=== PATIENT | male | born 1960 | race Caucasian/White ===

== ENCOUNTER 2024-06-29 06:49 | Emergency (ER) | payer MEDICARE, MEDICAID, SELFPAY ==
[2024-06-29] VITALS (8 sets, daily range): BP systolic 84–183; BP diastolic 61–155; PULSE 66–169; RESP 16–22; TEMP 36.4–36.8; O2SAT 97–100; BMI 22.3
--- NOTE | 2024-06-29 06:52 | EKG_ITS ---
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1960 Requested By: ED Temporary Provider Order Number: [id number] Reading MD: ED Temporary Provider Measurements Intervals [place] Rate: 76 P: 46 [place]: 152 QRS: -17 QRSD: 185 T: 52 QT: 385 QTc: 433 Interpretive Statements SINUS RHYTHM WITH FREQUENT SUPRAVENTRICULAR PREMATURE COMPLEXES INDETERMINATE AXIS RIGHT BUNDLE BRANCH BLOCK [120+ ms QRS DURATION, UPRIGHT V1, 40+ ms S IN I/aVL/V4/V5/V6] SEPTAL MYOCARDIAL INFARCTION , OF INDETERMINATE AGE [40+ ms Q WAVE IN V1/V2] Compared to ECG 05/25/2023 09:42:04 Right bundle-branch block now present Myocardial infarct finding now present Incomplete right bundle-branch block no longer present /store/S0/[id number].pdf
--- NOTE | 2024-06-29 07:24 | PC.NURSE ---
Pt. here from home to room 5, pt. states his chest pain woke him up this morning. Pt. states he took 1 of his Nitro this morning, pt. states after the Nitro he vomited X 4. Pt. states he is supposed to be taking a heart medication and sometimes he takes it once a week, pt. states he takes it when he gets a bad headache.
--- NOTE | 2024-06-29 07:27 | PD.EDCHEST ---
ED Chest Pain RME/HPI General Chief Complaint: Chest Pain Stated Complaint: CHEST PAIN RADIATES TO LEFT ARM Time Seen by Provider: 06/29/24 06:55 Arrival date/time: 06/29/24 06:49 RME / HPI RME / HPI narrative: Patient is a 64-year-old male with past medical history of CAD, SVT, paroxysmal afib, and methamphetamine/marijuana abuse who presents to the ED on 06/29/2024 due to chest discomfort and palpitations starting around 5 am. Patient states that chest discomfort feels like aching, central substernal, and with radiation to the left arm. Patient endorses smoking meth last 3 days ago. Patient does not take any regular medications other than lisinopril which he takes intermittently. Patient otherwise denies fevers, chills, abdominal pain, dysuria, or changes in bowel habits. Related Data Home Medications ?Medication ?Instructions ?Recorded ?Confirmed lisinopril 20 1 tab PO DAILY 05/25/23 05/25/23 mg-hydrochlorothiazide 12.5 mg tablet Previous Rx's ?Medication ?Instructions ?Recorded docusate sodium 100 mg capsule 100 mg PO BID #40 caps 05/26/23 (Colace) hydrocodone 7.5 mg-acetaminophen 1 tab PO Q6H PRN pain (scale score 05/26/23 325 mg tablet 7-10) #20 tabs ibuprofen 600 mg tablet 600 mg PO Q8H PRN pain (scale 05/26/23 score 4-6) #15 tabs Allergies Allergy/AdvReac Type Severity Reaction Status Date / Time No Known Allergies Allergy Verified 05/26/23 10:10 Review of Systems Review of Systems Systems Reviewed: All systems reviewed, normal except as documented Past Medical History Past Medical History CARDIAC: Positive Cardiac Disorders (SVT), Myocardial Infarction (x2) and Hypertension RESPIRATORY: Positive Pneumonia GENITOURINARY: Negative Renal Disease ENDOCRINE: Negative Diabetes Mellitus Type 1 or Diabetes Mellitus Type 2 Family History FAMILY HISTORY: Positive Family Cardiac Disorders (sister had heart attack, father of heart attack.), Family Gastrointestinal Problems (sister from CROHN'S DISEASE.) and Family Cancer (brother and sister) Social History SMOKING STATUS: Current every day smoker SECOND HAND EXPOSURE: Yes Travel History EBOLA RISK: No ED Exam Narrative Physical exam: Physical Exam General: Well-built male, awake, and in no acute distress. Conversational, disheveled appearing. HEENT: Normocephalic, atraumatic, mucous membranes moist. Heart: Tachycardic rate and regular rhythm, no murmurs. Lungs: Clear to auscultation with no wheezing or crackles. Abdomen: Soft, nondistended, nontender, positive bowel sounds. ?No guarding or rebound tenderness. Neurologic: Alert and oriented x3, no gross neurological deficit, and patient able to move all 4 extremities. Extremities: No edema. Skin: No rash or ecchymoses. Course Quality Measures none Orders Category Date Time Status Supervisor Assembling NOW Care 06/29/24 07:12 Completed EKG (ED ONLY) *Do not use* NOW Care 06/29/24 06:52 Completed EKG (ED ONLY) *Do not use* NOW Care 06/29/24 07:44 Completed CXR [XR chest 1V] Stat Exams 06/29/24 07:28 Completed EKG (ED Only) Stat Exams 06/29/24 06:52 Draft EKG (ED Only) Stat Exams 06/29/24 07:44 Ordered CBC Stat Lab 06/29/24 08:25 Completed CMP [Comprehensive Metabolic Panel] Stat Lab 06/29/24 08:15 Completed Mag [Magnesium] Stat Lab 06/29/24 08:15 Completed Troponin I Stat Lab 06/29/24 08:15 Completed Adenosine 6mg Inj [Adenocard Inj] Med 06/29/24 07:16 Discontinued 12 mg IVP X1 ONE Adenosine 6mg Inj [Adenocard Inj] Med 06/29/24 07:59 Discontinued 12 mg IVP X1 ONE Adenosine 6mg Inj [Adenocard Inj] Med 06/29/24 07:53 Discontinued 6 mg .ROUTE .STK-MED ONE Sodium Chloride 0.9% 1000 ml [Ns] 1,000 ml Med 06/29/24 07:49 Discontinued IV 999 mls/hr Vital Signs Vital signs: Vital Signs Temperature 98.2 F 06/29/24 07:04 Pulse Rate 169 H 06/29/24 07:04 Respiratory Rate 22 H 06/29/24 07:04 Blood Pressure 183/155 H 06/29/24 07:04 Pulse Oximetry (%) 100 06/29/24 07:04 Oxygen Delivery Method Room Air 06/29/24 07:04 Procedures -ED EKG Interpretation #1: Date of EK06/29/24 Time of EK:54 Rate: 173 Interpretation: Interpreted by me EKG Impression: Bundle branch block (right) and SVT Chest Pain MDM Narrative MDM Narrative:: EKG is less clear due to the right bundle branch block but patient's rate has been regular in the 170s. Patient data External records reviewed:: [facility] previous records Clinical information provided by:: patient Social determinants that could affect healthcare access:: substance use Patient has the following chronic illnesses:: As above How is presenting disease/condition affected by chronic disease/condition?: caused by Evaluation data The following diagnostics were reviewed and interpreted by me:: lab results, radiology exam(s) and EKG tracing(s) Lab and/or radiology exams considered but not ordered:: Ordered Interpretation Summary: CXR shows no pneumonia or pulmonary edema at this time. Troponin is normal. Medications / Prescriptions Medications or Prescriptions considered but not ordered:: Given Medication administrations:: Medication Administration History Discontinued Medications Adenosine (Adenosine Inj 3 Mg/Ml Vial) 12 mg IVP X1 ONE Stop: 06/29/24 07:17 Last Admin: 06/29/24 07:56 Dose: 6 mg Documented By: ED Adenosine (Adenosine Inj 3 Mg/Ml Vial) 12 mg IVP X1 ONE Stop: 06/29/24 08:00 Last Admin: 06/29/24 08:00 Dose: 12 mg Documented By: ED Adenosine (Adenosine Inj 3 Mg/Ml Vial) Confirm Administered Dose 6 mg .ROUTE .STK-MED ONE Stop: 06/29/24 07:54 Last Admin: 06/29/24 08:05 Dose: Not Given Documented By: ED Non-Admin Reason: Duplicate Medication on eMAR Sodium Chloride (Ns) 1,000 mls @ 999 mls/hr IV .Q1H1M ONE Stop: 06/29/24 08:49 Last Admin: 06/29/24 08:06 Dose: 999 mls/hr Documented By: ED Given Consultations Consultation(s) initiated? (list below): No Diagnosis Chest Pain Differential Diagnosis: stable angina, atypical chest pain, costochondritis and chest pain Most likely diagnosis given after review of the tests above:: SVT Admission Indicated Admission indicated?: not indicated Explain why admission is indicated or not indicated:: Patient's condition was stabilized while in ED and he is stable for discharge home. Admission Request Was there a request for admission?: No Disposition Plan Disposition Plan: Discharge Discharge Attestation Discharge Attestation: The patient and all family members were given an opportunity to ask questions and understood the discharge instructions. Discharge instructions specifically effects, indications for sooner follow up or return to the emergency department, and the expected course of current diagnosis. Patient condition: Stable Discharge Plan Plan Patient Disposition: HOME (Self Care) Disposition Comment: Stable for discharge Patient condition on transfer: Stable Prescriptions/Referrals Prescriptions/Med Rec: No Action lisinopril-hydrochlorothiazide 20-12.5 mg tablet 1 tab PO DAILY docusate sodium [Colace] 100 mg capsule 100 mg PO BID Qty: 40 0RF ibuprofen 600 mg tablet 600 mg PO Q8H PRN (Reason: pain (scale score 4-6)) Qty: 15 0RF hydrocodone-acetaminophen 7.5-325 mg tablet 1 tab PO Q6H MDD 4 PRN (Reason: pain (scale score 7-10)) Qty: 20 0RF Referrals: Temporary Provider,ED [Physician] - In 1 week Problem List Clinical Impression: Supraventricular tachycardia, Methamphetamine abuse Patient/Caregiver Discharge Instructions Education Materials: Understanding Methamphetamine ..., Understanding Supraventricular ..., ED About Arrhythmias, ED Drug Abuse Additional Instructions: Please make an appointment to follow up with your primary doctor. Please continue taking your home medications as prescribed and follow up with your primary doctor. Please refrain from taking any methamphetamines as they can cause abnormal heart rhythms. Please return to the ED if you experience recurrence of chest pain or have any shortness of breath. Print Language: Nigerian Stand Alone Forms: Lori Award Info., Patient Portal Info Letter
--- NOTE | 2024-06-29 07:28 | XR_ITS ---
Examination: AP chest single view Technique one AP portable upright chest single view Exam date and time: June 29, 2024 0805 hours Comparison August 28, 2017 INDICATIONS: Chest pain today. FINDINGS: Accentuation basilar bronchovascular markings No significant cardiac enlargement Prominent central pulmonary arteries Possible bullous change at the right apex Prominent osteopenia IMPRESSION: COPD Basilar bronchitis pattern
[2024-06-29] MEDS: ADENOSINE INJ 3 MG/ML VIAL 12 MG IVP ×2 (07:56→08:00)
[2024-06-29] MEDS: SODIUM CHLORIDE 0.9% 1000 ML 1,000 ML 999 ML IV (08:06)
--- NOTE | 2024-06-29 08:13 | PC.NURSE ---
Pt. states when the chest pain started this morning at 0530, he couldn't see. Pt. states that has resolved now.
--- NOTE | 2024-06-29 08:15 | PC.NURSE ---
2 warm blankets given. Pt. states thank you.
[2024-06-29 08:35] LABS: Basophils # (Auto) 0.1 Thou/mm3 (0.0-0.2); Basophils % (Auto) 1 % (0-2.5); Eosinophils # (Auto) 0.2 Thou/mm3 (0.0-0.5); Eosinophils % (Auto) 2 % (0-10); Hematocrit 38.9 % (41.0-53.0); Immature Granulocytes % (Auto) 0 % (0-0); Immature Granulocytes Auto 0.03 Thou/mm3 (0.00-0.00); Lymphocytes # (Auto) 1.2 Thou/mm3 (1.0-4.8); Lymphocytes % (Auto) 12 % (10-50); Mean Corpuscular HGB Conc 33.4 g/dl (31.0-37.0); Mean Corpuscular Hemoglobin 27.2 pg (25.0-35.0); Mean Corpuscular Volume 81 fL (80-100); Monocytes # (Auto) 0.7 Thou/mm3 (0.0-0.8); Monocytes % (Auto) 7 % (0-12); Neutrophils # (Auto) 7.6 Thou/mm3 (1.8-7.7); Neutrophils % (Auto) 78 % (37-80); Nucleated Red Blood Cell % 0 /100 WBC (0); Platelet Count 359 Thou/mm3 (140-440); RDW Standard Deviation 42.4 fL (35.1-43.9); Red Blood Count 4.78 Miln/mm3 (4.50-5.90); White Blood Count 9.7 Thou/mm3 (3.8-10.6)
[2024-06-29 09:18] LABS: Alanine Aminotransferase < 7 U/L (10-49); Albumin, Serum 3.5 gm/dL (3.4-4.8); Albumin/Globulin Ratio 1.5 (1.2-2.2); Alkaline Phosphatase 112 U/L (46-116); Anion Gap 7 (7-16); Aspartate Amino Transferase 11 U/L (0-34); BUN/Creatinine Ratio 23 Ratio (12-20); Bilirubin,Total 0.3 mg/dL (0.3-1.2); Blood Urea Nitrogen 25 mg/dL (9-23); Calcium 8.7 mg/dL (8.3-10.6); Calcium (Corrected) 9.1 mg/dL (8.5-10.1); Carbon Dioxide 25.6 mMol/L (20.0-31.0); Chloride 107 mMol/L (98-107); Creatinine (Component) 1.1 mg/dL (0.6-1.3); Estimated Creatinine Clearance 68.7 mL/min (>60); Globulin 2.4 gm/dL (2.3-3.5); Glucose 122 mg/dL (74-106); Magnesium 1.8 mg/dL (1.6-2.6); Osmolality,Calculated 284 (275-295); Potassium 3.5 mMol/L (3.4-5.1); Sodium 140 mMol/L (136-145); Total Protein 5.9 gm/dL (5.7-8.2); Troponin I 0.023 ng/mL (0.0-0.045); eGFR > 60 See Note
== END 2024-06-29 11:48 | disposition home or self-care (01) ==
PROVIDERS: Student in an Organized Health Care Education/Training Program; Emergency Provider Emergency Medicine
DX: I47.10 Supraventricular tachycardia, unspecified (principal); I45.10 Unspecified right bundle-branch block; F15.10 Other stimulant abuse, uncomplicated; I25.10 Atherosclerotic heart disease of native coronary artery without angina pectoris; I48.0 Paroxysmal atrial fibrillation; I10 Essential (primary) hypertension; I25.2 Old myocardial infarction; F17.200 Nicotine dependence, unspecified, uncomplicated
CPT/HCPCS: 36415; 71045; 80053; 83735; 84484; 85025; 93005; 96374; 99284; J0153; J7030

== ENCOUNTER 2024-07-28 17:40 | Emergency (ER) | payer MEDICARE, MEDICAID, SELFPAY ==
[2024-07-28 18:02] VITALS: BP 146/77; PULSE 75; RESP 18; TEMP 37.2; O2SAT 95; BMI 24.3
--- NOTE | 2024-07-28 19:22 | PD.EDSKIN ---
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 Patient was seen in clinic and given Bactrim w/o relief. Limitations: no limitations Related Data Home Medications ?Medication ?Instructions ?Recorded ?Confirmed lisinopril 20 1 tab PO DAILY 05/25/23 05/25/23 mg-hydrochlorothiazide 12.5 mg tablet Previous Rx's ?Medication ?Instructions ?Recorded docusate sodium 100 mg capsule 100 mg PO BID #40 caps 05/26/23 (Colace) hydrocodone 7.5 mg-acetaminophen 1 tab PO Q6H PRN pain (scale score 05/26/23 325 mg tablet 7-10) #20 tabs ibuprofen 600 mg tablet 600 mg PO Q8H PRN pain (scale 05/26/23 score 4-6) #15 tabs clobetasol 0.05 % topical cream 1 applic topical BID 2 weeks #15 07/28/24 grams ketoconazole 2 % shampoo 1 applic topical Q14D #120 mL 07/28/24 Allergies Allergy/AdvReac Type Severity Reaction Status Date / Time No Known Allergies Allergy Verified 07/28/24 17:41 Review of Systems Review of Systems Systems Reviewed: All systems reviewed, normal except as documented Constitutional Constitutional: Reports system reviewed and no additional complaints, except as documented, Denies fever(s) and Denies headache(s) ENT Ears, Nose, Mouth, and Throat: Denies disequilibrium and Denies headache(s) Cardiovascular Cardiovascular: Reports system reviewed and no additional complaints, except as documented, Denies chest pain and Denies dyspnea Respiratory Respiratory: Reports system reviewed and no additional complaints, except as documented, Denies cough and Denies dyspnea Gastrointestinal Gastrointestinal: Reports system reviewed and no additional complaints, except as documented, Denies abdominal pain, Denies nausea and Denies vomiting Integumentary/Breasts Skin/Breast: Reports as per HPI, Reports pruritus, Reports rash and Reports skin pain Neurologic Neurologic: Reports system reviewed and no additional complaints, except as documented, Denies confusion, Denies disequilibrium and Denies headache(s) Psychiatric Psychiatric: Denies confusion Past Medical History Past Medical History NEUROLOGIC: Negative Neurological Disorders or Seizures CARDIAC: Positive Cardiac Disorders (SVT), Myocardial Infarction (x2), Cardiac Arrhythmia (years ago) and Hypertension; Negative Congestive Heart Failure RESPIRATORY: Positive Pneumonia; Negative Chronic Obstructive Pulmonary Disease (COPD) GASTROINTESTINAL: Negative Gastrointestinal Disorders GENITOURINARY: Positive Genitourinary Disorders and Inguinal Hernia; Negative Renal Disease MUSCULOSKELETAL: Negative Musculoskeletal Disorders ENT: Positive Cataracts and Blind (Left eye) ENDOCRINE: Negative Endocrine Disorders, Diabetes Mellitus Type 1 or Diabetes Mellitus Type 2 HEMATOLOGIC: Negative Blood Disorders PSYCHO/SOCIAL: Positive Recreational Drug Use (past) OTHER HISTORY: Positive Hospitalization (heart problems many years ago); Negative Autoimmune Disease, Shingles, Blood Transfusions, Blood Transfusion Reaction or Anesthesia Reactions Family History FAMILY HISTORY: Positive Family Cardiac Disorders (sister had heart attack, father of heart attack.), Family Gastrointestinal Problems (sister from CROHN'S DISEASE.) and Family Cancer (brother and sister); Negative Family Psychiatric Problems, Family Respiratory Disorders, Family Surgery or Family Anesthesia Reaction Surgical History SURGICAL: Positive Tonsillectomy Social History SMOKING STATUS: Never smoker SECOND HAND EXPOSURE: Yes ED Exam General Limitations: Present no limitations General appearance: Present alert and in no apparent distress Head Head exam: Present atraumatic Eye Eye exam: Present normal appearance, PERRL and EOMI ENT ENT exam: Present normal exam, normal oropharynx and mucous membranes moist Neck Neck exam: Present normal inspection, full ROM and trachea midline Chest Chest inspection: Present normal inspection and symmetric chest wall rise Respiratory Respiratory exam: Present normal lung sounds bilaterally Cardiovascular Cardiovascular exam: Present regular rate, normal rhythm and normal heart sounds Abdominal Exam Abdominal exam: Present soft and normal bowel sounds Extremities Exam Extremities exam: Present normal inspection and full ROM Back Exam Back exam: Present normal inspection and full ROM Neurological Exam Neurological exam: Present alert, oriented X3 and CN II-XII intact Psychiatric Psychiatric exam: Present normal affect and normal mood Skin Skin exam: Present warm, dry, intact, normal color and rash Course Quality Measures none Orders Category Date Time Status dexAMETHasone TAB [Decadron Tab] Med 07/28/24 18:52 Discontinued 10 mg PO X1 ONE Vital Signs Vital signs: Vital Signs Temperature 98.9 F 07/28/24 18:02 Pulse Rate 75 07/28/24 18:02 Respiratory Rate 18 07/28/24 18:02 Blood Pressure 146/77 H 07/28/24 18:02 Pulse Oximetry (%) 95 07/28/24 18:02 Oxygen Delivery Method Room Air 07/28/24 18:02 O2 at 95% on RA and WNLs Skin / Abscess / Foreign Body MDM Narrative MDM Narrative:: 64M with history of afib and drug use presents to ED with 1 week of itchy/burning/painful rash on posterior scalp/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 Patient was seen in clinic and given Bactrim w/o relief. Physical exam reveals some blistering on posterior neck/scalp with no area of fluctuance. Patient is afebrile, calm, and alert. Likely contact dermatitis. Will also cover w/ antifungal. Patient data External records reviewed:: [facility] previous records Clinical information provided by:: patient Social determinants that could affect healthcare access:: none Patient has the following chronic illnesses:: none How is presenting disease/condition affected by chronic disease/condition?: no chronic disease Evaluation data The following diagnostics were reviewed and interpreted by me:: other (specify) (none) Lab and/or radiology exams considered but not ordered:: not ordered Interpretation Summary: n/a Medications / Prescriptions Medications or Prescriptions considered but not ordered:: ordered Medication administrations:: Medication Administration History Discontinued Medications Dexamethasone (Dexamethasone 4 Mg Tablet) 10 mg PO X1 ONE Stop: 07/28/24 18:53 Last Admin: 07/28/24 19:23 Dose: 10 mg Documented By: above Consultations Consultation(s) initiated? (list below): No Diagnosis Skin/Abscess Differential Diagnosis: abscess of skin or subcutaneous tissue, viral exanthem, dermatophytosis, urticaria, herpes zoster, allergic reaction to drug, cellulitis, eczema, insect bites, impetigo, contact dermatitis and other (kerion, tinea capitis, ) Most likely diagnosis given after review of the tests above:: contact dermatitis Admission Indicated Admission indicated?: not indicated Admission Request Was there a request for admission?: No Disposition Plan Disposition Plan: Discharge Discharge Attestation Discharge Attestation: The patient and all family members were given an opportunity to ask questions and understood the discharge instructions. Discharge instructions specifically effects, indications for sooner follow up or return to the emergency department, and the expected course of current diagnosis. Patient condition: Stable Discharge Plan Plan Patient Disposition: HOME (Self Care) Disposition Comment: Stable Prescriptions/Referrals Prescriptions/Med Rec: New clobetasol 0.05 % cream 1 applic topical BID 14 Days Qty: 15 0RF Rx Instructions: Do not use on face or skin folds ketoconazole 2 % shampoo 1 applic topical Q14D Qty: 120 0RF No Action lisinopril-hydrochlorothiazide 20-12.5 mg tablet 1 tab PO DAILY docusate sodium [Colace] 100 mg capsule 100 mg PO BID Qty: 40 0RF ibuprofen 600 mg tablet 600 mg PO Q8H PRN (Reason: pain (scale score 4-6)) Qty: 15 0RF hydrocodone-acetaminophen 7.5-325 mg tablet 1 tab PO Q6H MDD 4 PRN (Reason: pain (scale score 7-10)) Qty: 20 0RF Problem List Clinical Impression: Contact dermatitis Patient/Caregiver Discharge Instructions Education Materials: ED Contact Dermatitis Additional Instructions: Please follow-up with PCP within 24-48 hours and return immediately if symptoms worsen. Can finish ABX. Print Language: Surinamese Stand Alone Forms: Patient Portal Info Letter KAYLEY/DEB Supervising Physician KAYLEY/DEB Supervising Physician: Dr. Currie
[2024-07-28] MEDS: dexAMETHasone 4 MG TABLET 10 MG PO (19:23)
== END 2024-07-28 20:28 | disposition home or self-care (01) ==
LOC: SERX 19:07
PROVIDERS: Emergency Provider Emergency Medicine
DX: L25.9 Unspecified contact dermatitis, unspecified cause (principal)
CPT/HCPCS: 99282; J8540

== ENCOUNTER 2024-09-13 07:37 | Inpatient (IN) | payer MEDICARE, MEDICAID, SELFPAY ==
[2024-09-13] VITALS (11 sets, daily range): BP systolic 105–156; BP diastolic 69–96; PULSE 63–130; RESP 15–98; TEMP 36.2–36.6; O2SAT 97–99; BMI 23.4
--- NOTE | 2024-09-13 07:39 | EKG_ITS ---
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1960 Requested By: Gavin Beckford (GAURANG) Order Number: [id number] Reading MD: Gavin Beckford (PERCUSSION INSTRUCTOR) Measurements Intervals [place] Rate: 142 P: MO: QRS: -52 QRSD: 151 T: 39 QT: 319 QTc: 491 Interpretive Statements ATRIAL FIBRILLATION WITH RAPID VENTRICULAR RESPONSE INDETERMINATE AXIS RIGHT BUNDLE BRANCH BLOCK [120+ ms QRS DURATION, UPRIGHT V1, 40+ ms S IN I/aVL/V4/V5/V6] MARKED ST DEPRESSION, CONSIDER SUBENDOCARDIAL INJURY [0.2+ mV ST DEPRESSION] ACUTE TX Compared to ECG 06/29/2024 08:04:34 ST (T wave) deviation now present Sinus rhythm no longer present Myocardial infarct finding no longer present /store/S0/[id number]
--- NOTE | 2024-09-13 07:39 | XR_ITS ---
Examination: AP chest single view Technique one AP portable semiupright chest single view Exam date and time: September 13, 2024 0829 hours Comparison June 29, 2024 INDICATIONS: Chest pain dizziness beginning several hours ago. FINDINGS: Normal heart size Prominent central pulmonary arteries Mild interstitial scarring at the lung bases No lobar pneumonia or pulmonary edema Prominent osteopenia IMPRESSION: COPD No pneumonia or pulmonary edema
[2024-09-13 08:29] LABS: Prothrombin Time 11.1 Seconds (9.0-12.2)
[2024-09-13 08:30] LABS: B-Type Natriuretic Peptide 65 pg/mL (0-100)
[2024-09-13 08:31] LABS: Alanine Aminotransferase 11 U/L (10-49); Albumin/Globulin Ratio 1.6 (1.2-2.2); Alkaline Phosphatase 118 U/L (46-116); Anion Gap 8 (7-16); Aspartate Amino Transferase 20 U/L (0-34); BUN/Creatinine Ratio 18 Ratio (12-20); Bilirubin,Total 0.3 mg/dL (0.3-1.2); Blood Urea Nitrogen 27 mg/dL (9-23); Calcium 8.8 mg/dL (8.3-10.6); Calcium (Corrected) 8.8 mg/dL (8.5-10.1); Carbon Dioxide 22.8 mMol/L (20.0-31.0); Chloride 109 mMol/L (98-107); Creatinine (Component) 1.5 mg/dL (0.6-1.3); Estimated Creatinine Clearance 52.3 mL/min (>60); Globulin 2.5 gm/dL (2.3-3.5); Glucose 124 mg/dL (74-106); Osmolality,Calculated 285 (275-295); Potassium 3.8 mMol/L (3.4-5.1); Sodium 140 mMol/L (136-145); Total Protein 6.5 gm/dL (5.7-8.2); Troponin I 0.035 ng/mL (0.0-0.045); eGFR 51 See Note
[2024-09-13 08:34] LABS: Basophils # (Auto) 0.1 Thou/mm3 (0.0-0.2); Basophils % (Auto) 1 % (0-2.5); Eosinophils # (Auto) 0.2 Thou/mm3 (0.0-0.5); Eosinophils % (Auto) 1 % (0-10); Hematocrit 42.8 % (41.0-53.0); Hemoglobin 14.7 g/dL (13.5-16.0); Immature Granulocytes % (Auto) 1 % (0-0); Immature Granulocytes Auto 0.08 Thou/mm3 (0.00-0.00); Lymphocytes # (Auto) 1.9 Thou/mm3 (1.0-4.8); Lymphocytes % (Auto) 12 % (10-50); Mean Corpuscular HGB Conc 34.3 g/dl (31.0-37.0); Mean Corpuscular Hemoglobin 28.1 pg (25.0-35.0); Mean Corpuscular Volume 82 fL (80-100); Monocytes # (Auto) 1.4 Thou/mm3 (0.0-0.8); Monocytes % (Auto) 8 % (0-12); Neutrophils % (Auto) 78 % (37-80); Nucleated Red Blood Cell % 0 /100 WBC (0); Platelet Count 359 Thou/mm3 (140-440); RDW Standard Deviation 46.2 fL (35.1-43.9); Red Blood Count 5.23 Miln/mm3 (4.50-5.90); White Blood Count 16.7 Thou/mm3 (3.8-10.6)
[2024-09-13 08:39] LABS: Collection Type, Urine Clean Catch; WBC,Urine 0 /hpf (0-5)
--- NOTE | 2024-09-13 08:39 | PD.EDCHEST ---
ED Chest Pain RME/HPI General Chief Complaint: Chest Pain Stated Complaint: CHEST PAIN AND DIZZINESS Time Seen by Provider: 09/13/24 08:32 Arrival date/time: 09/13/24 07:37 Limitations: no limitations RME / HPI RME / HPI narrative: DR. BRUCE MAIN ED EVALUATION: 64 year old male with past medical history significant for atrial fibrillation, hypertension, and methamphetamine abuse presents to the Emergency Department with complaint of chest pain onset 1 month intermittently but today since 630 AM. Associated symptoms include chest palpitations and an occasional cough. No fevers or chills. Related Data Home Medications ?Medication ?Instructions ?Recorded ?Confirmed lisinopril 20 1 tab PO DAILY 05/25/23 05/25/23 mg-hydrochlorothiazide 12.5 mg tablet Previous Rx's ?Medication ?Instructions ?Recorded docusate sodium 100 mg capsule 100 mg PO BID #40 caps 05/26/23 (Colace) hydrocodone 7.5 mg-acetaminophen 1 tab PO Q6H PRN pain (scale score 05/26/23 325 mg tablet 7-10) #20 tabs ibuprofen 600 mg tablet 600 mg PO Q8H PRN pain (scale 05/26/23 score 4-6) #15 tabs ketoconazole 2 % shampoo 1 applic topical Q14D #120 mL 07/28/24 Allergies Allergy/AdvReac Type Severity Reaction Status Date / Time No Known Allergies Allergy Verified 09/13/24 07:41 Review of Systems Review of Systems Systems Reviewed: All systems reviewed, normal except as documented Narrative Review of Systems: GEN: No fever, no chills, no weight loss EYES: No discharge, no visual changes, no pain HEENT: No ear pain, no congestion, no sore throat PULM: No shortness of breath, + occasional cough CV: + chest pain, no dyspnea on exertion, + palpitations GI: No nausea, no vomiting, no diarrhea, no pain, no constipation : No frequency, no urgency and no dysuria MUSC/SKEL: No joint pain, no back pain SKIN: No rash PSYCH: No hallucinations, no depression HEME/LYMPH: No easy bleeding or bruising tendencies NEURO: No weakness, no headache Past Medical History Past Medical History CARDIAC: Positive Cardiac Disorders, Myocardial Infarction, Cardiac Arrhythmia and Hypertension RESPIRATORY: Positive Pneumonia GENITOURINARY: Positive Genitourinary Disorders and Inguinal Hernia ENT: Positive Cataracts and Blind (detached retina) PSYCHO/SOCIAL: Positive Recreational Drug Use OTHER HISTORY: Positive Hospitalization Family History FAMILY HISTORY: Positive Family Cardiac Disorders, Family Gastrointestinal Problems and Family Cancer Surgical History SURGICAL: Positive Tonsillectomy Social History SMOKING STATUS: Current every day smoker SECOND HAND EXPOSURE: Yes SUBSTANCE USE: methamphetamine ED Exam General Limitations: Present no limitations General appearance: Present alert and in no apparent distress Head Head exam: Present atraumatic, normocephalic and normal inspection Eye Eye exam: Present normal appearance, PERRL and EOMI ENT ENT exam: Present normal exam, normal oropharynx and mucous membranes moist Neck Neck exam: Present normal inspection, full ROM and trachea midline Chest Chest inspection: Present normal inspection and symmetric chest wall rise Respiratory Respiratory exam: Present normal lung sounds bilaterally Cardiovascular Cardiovascular exam: Present tachycardia and normal heart sounds; Absent systolic murmur or diastolic murmur Abdominal Exam Abdominal exam: Present soft and normal bowel sounds Extremities Exam Extremities exam: Present normal inspection and full ROM Back Exam Back exam: Present normal inspection and full ROM Neurological Exam Neurological exam: Present alert, oriented X3 and CN II-XII intact Psychiatric Psychiatric exam: Present normal affect and normal mood Skin Skin exam: Present warm, dry, intact and normal color Course Quality Measures none Orders Category Date Time Status 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 STAT Care 09/13/24 08:52 Active Continuous Pulse Oximetry ONCE Care 09/13/24 08:52 Active EKG (ED ONLY) *Do not use* NOW Care 09/13/24 07:39 Completed Insert IV NOW Care 09/13/24 08:51 Active Insert IV STAT Care 09/13/24 08:52 Active EKG (ED Only) Stat Exams 09/13/24 07:39 Draft XR chest 1V portable Stat Exams 09/13/24 07:39 Taken XR chest 1V portable Stat Exams 09/13/24 08:52 Ordered B-Type Natriuretic Peptide Stat Lab 09/13/24 07:54 Completed B-Type Natriuretic Peptide Stat Lab 09/13/24 08:54 Ordered CBC Stat Lab 09/13/24 07:54 Completed CBC Stat Lab 09/13/24 08:54 Ordered Comprehensive Metabolic Panel Stat Lab 09/13/24 07:54 Completed Comprehensive Metabolic Panel Stat Lab 09/13/24 08:52 Ordered Drug Screen,Urine Stat Lab 09/13/24 08:30 Received Lipase Stat Lab 09/13/24 08:52 Ordered Magnesium Q4H Lab 09/13/24 09:00 Ordered Magnesium Q4H Lab 09/13/24 13:00 Ordered Magnesium Q4H Lab 09/13/24 17:00 Ordered Magnesium Q4H Lab 09/13/24 21:00 Ordered Magnesium Stat Lab 09/13/24 07:54 Completed Magnesium Stat Lab 09/13/24 08:52 Ordered Partial Thromboplastin Time Stat Lab 09/13/24 07:54 Completed Prothrombin Time with INR Stat Lab 09/13/24 07:54 Completed Troponin I Stat Lab 09/13/24 07:54 Completed Troponin I Stat Lab 09/13/24 08:52 Ordered Urinalysis Stat Lab 09/13/24 08:30 Received Aspirin Chew Med 09/13/24 08:51 Once 324 mg PO X1 ONE LORazepam [Ativan Inj] Med 09/13/24 08:46 Discontinued 2 mg IVP X1 ONE Metoprolol Tartrate Inj [Lopressor Inj] Med 09/13/24 08:51 Ordered 5 mg IV Q5M PRN Ondansetron Inj [Zofran Inj] Med 09/13/24 08:51 Ordered 4 mg IV Q1HR PRN Oxygen Delivery NOW RT 09/13/24 08:52 Active Vital Signs Vital signs: Vital Signs Temperature 97.9 F 09/13/24 07:57 Pulse Rate 130 H 09/13/24 07:57 Respiratory Rate 18 09/13/24 07:57 Blood Pressure 105/69 09/13/24 07:57 Pulse Oximetry (%) 99 09/13/24 07:57 Oxygen Delivery Method Room Air 09/13/24 07:57 Chest Pain MDM Narrative MDM Narrative:: Marisol Echols am scribing for and in the presence of Dr. Bruce. Patient data Clinical information provided by:: patient Social determinants that could affect healthcare access:: substance use (methamphetamine abuse) Patient has the following chronic illnesses:: atrial fibrillation and hypertension How is presenting disease/condition affected by chronic disease/condition?: exacerbated by Evaluation data The following diagnostics were reviewed and interpreted by me:: lab results, radiology exam(s) and EKG tracing(s) Medications / Prescriptions Medication administrations:: Medication Administration History Aspirin (Aspirin 81 Mg Chew) 324 mg PO X1 ONE Stop: 09/13/24 08:52 Metoprolol Tartrate (Metoprolol Tartrate Inj 1 Mg/Ml Amp 5 Ml) 5 mg IV Q5M PRN PRN Reason: TACHYCARDIA Ondansetron HCl (Ondansetron Inj 2 Mg/Ml Inj 2 Ml) 4 mg IV Q1HR PRN PRN Reason: PERSISTENT NAUSEA OR VOMITING Discontinued Medications Lorazepam (Lorazepam 2 Mg/Ml Vial) 2 mg IVP X1 ONE Stop: 09/13/24 08:47 Diagnosis Chest Pain Differential Diagnosis: atypical chest pain, chest pain and other (atrial fibrillation with RVR, pneumonia) Discharge Plan Prescriptions/Referrals Prescriptions/Med Rec: No Action lisinopril-hydrochlorothiazide 20-12.5 mg tablet 1 tab PO DAILY docusate sodium [Colace] 100 mg capsule 100 mg PO BID Qty: 40 0RF ibuprofen 600 mg tablet 600 mg PO Q8H PRN (Reason: pain (scale score 4-6)) Qty: 15 0RF hydrocodone-acetaminophen 7.5-325 mg tablet 1 tab PO Q6H MDD 4 PRN (Reason: pain (scale score 7-10)) Qty: 20 0RF ketoconazole 2 % shampoo 1 applic topical Q14D Qty: 120 0RF Patient/Caregiver Discharge Instructions Print Language: Lithuanian
--- NOTE | 2024-09-13 09:00 | EDNOTE_ITS ---
ED Chest Pain RME/HPI General Chief Complaint: Chest Pain Stated Complaint: CHEST PAIN AND DIZZINESS Time Seen by Provider: 09/13/24 08:32 Arrival date/time: 09/13/24 07:37 Limitations: no limitations RME / HPI RME / HPI narrative: DR. BRUCE MAIN ED EVALUATION: 64 year old male with past medical history significant for atrial fibrillation, hypertension, and methamphetamine abuse presents to the Emergency Department with complaint of chest pain onset 1 month intermittently but today since 630 AM. Associated symptoms include chest palpitations and an occasional cough. No fevers or chills. Related Data Home Medications ?Medication ?Instructions ?Recorded ?Confirmed lisinopril 20 1 tab PO DAILY 05/25/2305/11 mg-hydrochlorothiazide 12.5 mg tablet Previous Rx's ?Medication ?Instructions ?Recorded docusate sodium 100 mg capsule 100 mg PO BID #40 caps 05/26/23 (Colace) hydrocodone 7.5 mg-acetaminophen 1 tab PO Q6H PRN pain (scale score 05/26/23 325 mg tablet 7-10) #20 tabs ibuprofen 600 mg tablet 600 mg PO Q8H PRN pain (scal e 05/26/23 score 4-6) #15 tabs ketoconazole 2 % shampoo 1 applic topical Q14D #120 m L 07/28/24 Allergies Allergy/AdvReac Type Severity Reaction Status Date / Time No Known Allergies Allergy Verified 09/13/24 07:41 Review of Systems Review of Systems Systems Reviewed: All systems reviewed, normal except as documented Narrative Review of Systems: GEN: No fever, no chills, no weight loss EYES: No discharge, no visual changes, no pain HEENT: No ear pain, no congestion, no sore throat PULM: No shortness of breath, + occasional cough CV: + chest pain, no dyspnea on exertion, + palpitations GI: No nausea, no vomiting, no diarrhea, no pain, no constipation : No frequency, no urgency and no dysuria MUSC/SKEL: No joint pain, no back pain SKIN: No rash PSYCH: No hallucinations, no depression HEME/LYMPH: No easy bleeding or bruising tendencies NEURO: No weakness, no headache Past Medical History Past Medical History CARDIAC: Positive Cardiac Disorders (SVT), Myocardial Infarction (x2), Cardiac Arrhythmia (years ago) and Hypertension RESPIRATORY: Positive Pneumonia GENITOURINARY: Positive Genitourinary Disorders and Inguinal Hernia ENT: Positive Cataracts and Blind (Left eye) PSYCHO/SOCIAL: Positive Recreational Drug Use (past) OTHER HISTORY: Positive Hospitalization (heart problems many years ago) Family History FAMILY HISTORY: Positive Family Cardiac Disorders (sister had heart attack, father of heart attack.), Family Gastrointestinal Problems (sister from CROHN'S DISEASE.) and Family Cancer (brother and sister) Surgical History SURGICAL: Positive Tonsillectomy Social History SMOKING STATUS: Never smoker SECOND HAND EXPOSURE: Yes SUBSTANCE USE: methamphetamine ED Exam General Limitations: Present no limitations General appearance: Present alert and in no apparent distress Head Head exam: Present atraumatic, normocephalic and normal inspection Eye Eye exam: Present normal appearance, PERRL and EOMI ENT ENT exam: Present normal exam, normal oropharynx and mucous membranes moist Neck Neck exam: Present normal inspection, full ROM and trachea midline Chest Chest inspection: Present normal inspection and symmetric chest wall rise Respiratory Respiratory exam: Present normal lung sounds bilaterally Cardiovascular Cardiovascular exam: Present tachycardia and normal heart sounds; Absent systolic murmur or diastolic murmur Abdominal Exam Abdominal exam: Present soft and normal bowel sounds Extremities Exam Extremities exam: Present normal inspection and full ROM Back Exam Back exam: Present normal inspection and full ROM Neurological Exam Neurological exam: Present alert, oriented X3 and CN II-XII intact Psychiatric Psychiatric exam: Present normal affect and normal mood Skin Skin exam: Present warm, dry, intact and normal color Course Quality Measures none Orders Category Date Time Status Legal Administrative Secretary STAT Care 09/13/24 08:52 Active Continuous Pulse Oximetry ONCE Care 09/13/24 08:52 Active EKG (ED ONLY) *Do not use* NOW Care 09/13/24 07:39 Completed Insert IV NOW Care 09/13/24 08:51 Active Insert IV STAT Care 09/13/24 08:52 Active EKG (ED Only) Stat Exams 09/13/24 07:39 Draft XR chest 1V portable Stat Exams 09/13/24 07:39 Completed B-Type Natriuretic Peptide Stat Lab 09/13/24 07:54 Completed B-Type Natriuretic Peptide Stat Lab 09/13/24 09:06 Completed CBC Stat Lab 09/13/24 07:54 Completed CBC Stat Lab 09/13/24 09:06 Completed Comprehensive Metabolic Panel Stat Lab 09/13/24 07:54 Completed Comprehensive Metabolic Panel Stat Lab 09/13/24 09:06 Completed Drug Screen,Urine Stat Lab 09/13/24 08:30 Completed Lipase Stat Lab 09/13/24 09:06 Completed Magnesium Q4H Lab 09/13/24 13:00 Ordered Magnesium Q4H Lab 09/13/24 17:00 Ordered Magnesium Q4H Lab 09/13/24 21:00 Ordered Magnesium Stat Lab 09/13/24 07:54 Completed Magnesium Stat Lab 09/13/24 09:06 Completed Partial Thromboplastin Time Stat Lab 09/13/24 07:54 Completed Prothrombin Time with INR Stat Lab 09/13/24 07:54 Completed Troponin I Stat Lab 09/13/24 07:54 Completed Troponin I Stat Lab 09/13/24 09:06 Completed Urinalysis Stat Lab 09/13/24 08:30 Completed Aspirin Chew Med 09/13/24 08:51 Discontinued 324 mg PO X1 ONE LORazepam [Ativan Inj] Med 09/13/24 08:46 Discontinued 2 mg IVP X1 ONE Metoprolol Tartrate Inj [Lopressor Inj] Med 09/13/24 08:51 Active 5 mg IV Q5M PRN Ondansetron Inj [Zofran Inj] Med 09/13/24 08:51 Active 4 mg IV Q1HR PRN Oxygen Delivery NOW RT 09/13/24 08:52 Active Vital Signs Vital signs: Vital Signs Temperature 97.9 F 09/13/24 07:57 Pulse Rate 130 H 09/13/24 07:57 Respiratory Rate 18 09/13/24 07:57 Blood Pressure 105/69 09/13/24 07:57 Pulse Oximetry (%) 99 09/13/24 07:57 Oxygen Delivery Method Room Air 09/13/24 07:57 Procedures -ED EKG Interpretation #1: Date of EK09/13/24 Time of EK:00 Rate: 142 Interpretation: Interpreted by me Additional EKG comment: atrial fibrillation, rate 142, right axis deviation, right bundle branch block, possible ischemic changes Chest Pain MDM Narrative MDM Narrative:: Marisol Echols am scribing for and in the presence of Dr. Bruce. Patient was evaluated for chest pain and palpitation His initial presentation was rapid ventricular response with A-fib Initial EKG showed heart rate 142 Patient initial blood work showed negative troponin Subsequent troponin level came back high about 10 x 1 Patient was free of pain after metoprolol 5 mg IV x 3 His heart rate is down 69 Reevaluation showed no chest pain And patient was stayed in sinus rhythm after the metoprolol However the second troponin manage medically to admit the patient to follow-up on his troponins and make sure that we do not miss an ongoing NSTEMI Most likely the troponin elevation is secondary to the tachycardia Given his EKG I do not see any ST elevation He does have ST segment depression in inferior leads but that is could be secondary to the right bundle branch block I spoke with the hospitalist and he agreed to admit the patient Final diagnosis ACS A-fib with rapid ventricle response Methamphetamine use Plan Admit to the hospitalist Patient admitted in good condition Total critical care time was 60 minutes Patient data External records reviewed:: [facility] previous records (Reviewed last ED visit dated 07/28/24, discharged with the following: Contact dermatitis) Clinical information provided by:: patient Social determinants that could affect healthcare access:: substance use (methamphetamine abuse) Patient has the following chronic illnesses:: atrial fibrillation, hypertension, and methamphetamine abuse How is presenting disease/condition affected by chronic disease/condition?: exacerbated by Evaluation data The following diagnostics were reviewed and interpreted by me:: lab results, radiology exam(s) and EKG tracing(s) Lab and/or radiology exams considered but not ordered:: none Interpretation Summary: Patient had atrial fibrillation with RVR. Troponin is elevated, 0.126. Plan is to admit for ACS, elevated troponin, and NS EFRAIN. EKG#1: Interpreted by me: atrial fibrillation, rate 142, right axis deviation, right bundle branch block, possible ischemic changes RADIOLOGY Procedure(s): XR chest 1V portable Accession Number(s): [id number] cc: Shakeel (GAURANG),Gavin MERLOS; Ankit Bhakta MD; NO PRIMARY/FAMILY,PHYSICIAN~ Examination: AP chest single view Technique one AP portable semiupright chest single view Exam date and time: September 13, 2024 0829 hours Comparison June 29, 2024 INDICATIONS: Chest pain dizziness beginning several hours ago. FINDINGS: Normal heart size Prominent central pulmonary arteries Mild interstitial scarring at the lung bases No lobar pneumonia or pulmonary edema Prominent osteopenia IMPRESSION: COPD No pneumonia or pulmonary edema Dictated By: Ankit Bhakta MD Medications / Prescriptions Medications or Prescriptions considered but not ordered:: none Medication administrations:: Medication Administration History Metoprolol Tartrate (Metoprolol Tartrate Inj 1 Mg/Ml Amp 5 Ml) 5 mg IV Q5M PRN PRN Reason: TACHYCARDIA Ondansetron HCl (Ondansetron Inj 2 Mg/Ml Inj 2 Ml) 4 mg IV Q1HR PRN PRN Reason: PERSISTENT NAUSEA OR VOMITING Discontinued Medications Aspirin (Aspirin 81 Mg Chew) 324 mg PO X1 ONE Stop: 09/13/24 08:52 Last Admin: 09/13/24 09:15 Dose: 324 mg Documented By: VICENTE Lorazepam (Lorazepam 2 Mg/Ml Vial) 2 mg IVP X1 ONE Stop: 09/13/24 08:47 Last Admin: 09/13/24 09:26 Dose: Not Given Documented By: VICENTE Non-Admin Reason: Cancelled by Provider see above Consultations Consultation(s) initiated? (list below): Yes Consultation #1 (Physician, Specialty, Details): Discussed test HPI, PMHx, lab, radiology results and/or management with hospitalist. Will admit for further evaluation and management. Accepts patient for admission. Time: 10:38 Diagnosis Chest Pain Differential Diagnosis: atypical chest pain and other (atrial fibrillation with RVR, pneumonia) Most likely diagnosis given after review of the tests above:: ACS, elevated troponin, and NSTEMI. Admission Indicated Admission indicated?: indicated Admission Request Was there a request for admission?: Yes Admission Attestation Admission request attestation: Discussed case with [] from Hospitalist service regarding admission. Discussed patients ED course, exam findings, labs, and radiology results. The Hospitalist [agrees,declines] to accept the patient for admission. Disposition Plan Disposition Plan: Admit Discharge Plan Plan Patient Disposition: Admit Acute Care w/in Hospital Patient condition on transfer: Stable Prescriptions/Referrals Prescriptions/Med Rec: No Action lisinopril-hydrochlorothiazide 20-12.5 mg tablet 1 tab PO DAILY docusate sodium [Colace] 100 mg capsule 100 mg PO BID Qty: 40 0RF ibuprofen 600 mg tablet 600 mg PO Q8H PRN (Reason: pain (scale score 4-6)) Qty: 15 0RF hydrocodone-acetaminophen 7.5-325 mg tablet 1 tab PO Q6H MDD 4 PRN (Reason: pain (scale score 7-10)) Qty: 20 0RF ketoconazole 2 % shampoo 1 applic topical Q14D Qty: 120 0RF Referrals: No Primary/Family,Physician [Primary Care Provider] - In 1 week Problem List Clinical Impression: ACS (acute coronary syndrome), Elevated troponin, NSTEMI (non-ST elevation myocardial infarction), Methamphetamine abuse, Paroxysmal A-fib, Atrial fibril lation with RVR Patient/Caregiver Discharge Instructions Print Language: Greek Stand Alone Forms: Lori Award Info., Patient Portal Info Letter
[2024-09-13 09:07] LABS: Bilirubin,Urine 1+ (Negative); Blood,Urine 1+ (Negative); Clarity,Urine Turbid (Clear/Hazy); Color,Urine Yellow (Lt Yel-Yel); Glucose, Urine Trace (Negative); Hyaline Casts,Urine 1 /hpf (0-1); Ketones,Urine Trace (Negative); Leukocyte Esterase,Urine Negative (Negative); Nitrite,Urine Negative (Negative); Protein,Urine 2+ (Neg - Trace); RBC,Urine 9 /hpf (0-3); Specific Gravity,Urine 1.028 (1.001-1.035); Squamous Epithelial Cell,Urine 2 /hpf (0-5)
[2024-09-13 09:10] LABS: Amphetamine/Methamp Scrn,U Positive (Negative); Barbiturate Screen,Urine Negative (Negative); Benzodiazepines Screen,Urine Negative (Negative); Benzoylecgonine Screen, Ur Negative (Negative); Fentanyl Screen,Urine Positive (Negative); Opiate Screen,Urine Negative (Negative); THC Screen,Urine Negative (Negative)
[2024-09-13] MEDS: ASPIRIN 81 MG CHEW 324 MG PO (09:15)
--- NOTE | 2024-09-13 09:20 | PC.NURSE ---
Held metoprolol. Patient's HR at 76
[2024-09-13 09:26] LABS: Basophils # (Auto) 0.1 Thou/mm3 (0.0-0.2); Basophils % (Auto) 0 % (0-2.5); Eosinophils # (Auto) 0.1 Thou/mm3 (0.0-0.5); Eosinophils % (Auto) 1 % (0-10); Hematocrit 41.4 % (41.0-53.0); Hemoglobin 14.3 g/dL (13.5-16.0); Immature Granulocytes % (Auto) 0 % (0-0); Immature Granulocytes Auto 0.05 Thou/mm3 (0.00-0.00); Lymphocytes # (Auto) 1.2 Thou/mm3 (1.0-4.8); Lymphocytes % (Auto) 9 % (10-50); Mean Corpuscular HGB Conc 34.5 g/dl (31.0-37.0); Mean Corpuscular Hemoglobin 28.1 pg (25.0-35.0); Mean Corpuscular Volume 81 fL (80-100); Monocytes # (Auto) 0.8 Thou/mm3 (0.0-0.8); Monocytes % (Auto) 6 % (0-12); Neutrophils # (Auto) 11.1 Thou/mm3 (1.8-7.7); Neutrophils % (Auto) 84 % (37-80); Nucleated Red Blood Cell % 0 /100 WBC (0); Platelet Count 278 Thou/mm3 (140-440); RDW Standard Deviation 45.1 fL (35.1-43.9); Red Blood Count 5.09 Miln/mm3 (4.50-5.90); White Blood Count 13.2 Thou/mm3 (3.8-10.6)
[2024-09-13 09:52] LABS: B-Type Natriuretic Peptide 90 pg/mL (0-100)
[2024-09-13 09:57] LABS: Alanine Aminotransferase 11 U/L (10-49); Albumin, Serum 3.9 gm/dL (3.4-4.8); Albumin/Globulin Ratio 1.8 (1.2-2.2); Alkaline Phosphatase 112 U/L (46-116); Anion Gap 10 (7-16); Aspartate Amino Transferase 18 U/L (0-34); BUN/Creatinine Ratio 22 Ratio (12-20); Bilirubin,Total 0.3 mg/dL (0.3-1.2); Blood Urea Nitrogen 28 mg/dL (9-23); Calcium 8.6 mg/dL (8.3-10.6); Calcium (Corrected) 8.7 mg/dL (8.5-10.1); Carbon Dioxide 24.2 mMol/L (20.0-31.0); Chloride 108 mMol/L (98-107); Creatinine (Component) 1.3 mg/dL (0.6-1.3); Estimated Creatinine Clearance 60.3 mL/min (>60); Globulin 2.2 gm/dL (2.3-3.5); Glucose 114 mg/dL (74-106); Lipase 26 U/L (12-53); Osmolality,Calculated 289 (275-295); Potassium 3.8 mMol/L (3.4-5.1); Sodium 142 mMol/L (136-145); Total Protein 6.1 gm/dL (5.7-8.2); eGFR > 60 See Note
[2024-09-13 10:09] LABS: Troponin I 0.126 ng/mL (0.0-0.045)
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
[2024-09-13] MEDS: ENOXAPARIN SOD INJ 40 MG/0.4 ML SYRINGE SC (12:18)
[2024-09-13 12:53] LABS: Troponin I 0.573 ng/mL (0.0-0.045)
--- NOTE | 2024-09-13 13:08 | ECHO_ITS ---
Transthoracic Echo Report Ht (in): 71 Wt (lb): 170 Exam Location: [facility] Status: Inpatient Pit Steward: Indications: Procedure Performed: BP: 146 / 96 HR: Technical Quality: Fair MEASUREMENTS (Male / Female) Normal Values 2D ECHO LV Diastolic Diameter PLAX 4.1 cm 4.2 - 5.9 / 3.9 - 5.3 cm LV Systolic Diameter PLAX 2.8 cm IVS Diastolic Thickness 1.0 cm 0.6 - 1.0 / 0.6 - 0.9 cm LVPW Diastolic Thickness 1.0 cm 0.6 - 1.0 / 0.6 - 0.9 cm LV Relative Wall Thickness 0.5 LVOT Diameter 1.7 cm Aortic Root Diameter 3.9 cm LA Systolic Diameter LX 2.9 cm 3.0 - 4.0 / 2.7 - 3.8 cm LA Volume Index 21.8 cm?/m? 16 - 28 cm?/m? DOPPLER AV Peak Velocity 159.5 cm/s AV Peak Gradient 10.2 mmHg AV Mean Gradient 6.0 mmHg AV Velocity Time Integral 34.9 cm LVOT Peak Velocity 105.0 cm/s LVOT Peak Gradient 4.4 mmHg LVOT Velocity Time Integral 29.2 cm AV Area Cont Eq vti 1.9 cm? AV Area Cont Eq pk 1.5 cm? MV Area PHT 3.6 cm? Mitral E Point Velocity 64.6 cm/s Mitral A Point Velocity 59.0 cm/s Mitral E to A Ratio 1.1 LV E' Lateral Velocity 10.4 cm/s Mitral E to LV E' Lateral Ratio 6.2 LV E' Septal Velocity 7.3 cm/s Mitral E to LV E' Septal Ratio 8.8 TR Peak Velocity 230.7 cm/s TR Peak Gradient 21.3 mmHg PV Peak Velocity 84.6 cm/s PV Peak Gradient 2.9 mmHg RVOT Peak Velocity 52.5 cm/s FINDINGS Left Ventricle Normal left ventricular size, wall thickness, systolic function with no obvious regional wall motion abnormalities. There is grade II diastolic dysfunction of the left ventricle (pseudonormal filling pattern). The left ventricular ejection fraction is normal, estimated at 60-65%. Right Ventricle The right ventricle is normal in size and systolic function. The estimated right ventricular systolic pressure, 25 mmHg. Left Atrium The left atrium is normal by two-dimensional, color flow and Doppler imaging with no structural abnormalities, no thrombus formation present. Right Atrium The right atrium is normal by two-dimensional imaging, color flow and Doppler imaging with no structural abnormalities, no thrombus formation present. Atrial Septum The interatrial septum appears normal with no evidence of a shunt. Aorta The aorta is normal by two-dimensional, color flow and Doppler interrogation. Mitral Valve Mild mitral regurgitation. Mild mitral annular calcification. Aortic Valve Mild thickening of the aortic valve leaflets. Aortic valve sclerosis. Diffuse calcification of the aortic valve. Tricuspid Valve There is mild tricuspid valve regurgitation. Pulmonic Valve Trivial pulmonic valve regurgitation. Vessels The pulmonary artery appears normal. The inferior vena cava pulmonary and hepatic veins appear normal. Pericardium The pericardium is normal by two-dimensional imaging. There is no significant pericardial effusion. CONCLUSIONS Indication: Atrial fibrillation, elevated troponins-NSTEMI Normal LV size and function with a low normal EF of 50-55%. Indeterminate diastolic dysfunction. Normal RV size and function. Normal RVSP 25 to 30 mmHg. Mild aortic valve sclerosis without stenosis. Mildly decreased mobility of the RCC cusp with significant calcification. Mild MAC and mild MR. Trace TR. No pericardial effusion. Zacarias Welch (Electronically Signed) Final Date: 13 Sep 2024 20:02
[2024-09-13] MEDS: DILTIAZEM 30 MG TABLET PO ×2 (14:22→21:17)
[2024-09-13] MEDS: POTASSIUM CHLORIDE 20 mEq TABCR 40 MEQ PO (14:22)
[2024-09-13] MEDS: Magnesium Sulfate 2 GM Ivpb 2 GM/50 ML BAG IV (14:23)
[2024-09-13] MEDS: NICOTINE PATCH 14 MG/24 HR PATCH.TD24 TOP (14:49)
--- NOTE | 2024-09-13 15:29 | PD.ADDHP ---
Addendum History & Physical Addendum Date of report being addended: 09/13/24 Narrative: Attending's attestation I reviewed labs, imaging, EKG, home medications and prior available records. Face to face evaluation was performed by me. I have personally examined the patient and discussed assessment and plan with the IM team. I reviewed the resident note and agree with the plan with exceptions as below. Chest pain at rest Palpitations Non-STEMI Atrial fibrillation with RVR Methamphetamine abuse Fentanyl abuse Leukocytosis, likely reactive Heart rate improved to the 60s Ordered echocardiogram Continue to trend troponin Start aspirin and atorvastatin Consulted cardiology Counseled the patient regarding the importance of avoiding methamphetamine and fentanyl Trend WBC
[2024-09-13 16:51] LABS: Troponin I 0.736 ng/mL (0.0-0.045)
[2024-09-13 20:52] LABS: Troponin I 0.839 ng/mL (0.0-0.045)
--- NOTE | 2024-09-13 21:47 | ESCONSULT_ITS ---
HPI Data of Consult Requesting Physician: Yunior Modi MD Admitting Provider: Yunior Modi MD Attending Provider: Yunior Modi MD Primary Care Provider: Physician No Primary/Family Consult Narrative History of present illness: This is a 64-year-old male PMHx of COPD, HTN, paroxysmal A-fib, tachybradycardia arrhythmia, CAD, left retinal detachment, polysubstance use disorder including METH, FENTANYL, alcohol, marijuana, tobacco, and OPIOID, presenting with chief complaint of palpitations that started the night before admission. He reports feeling unwell, heart beating fast, associated with substernal chest pain and pressure radiating to the left arm and jaw as well as diaphoresis. He denied SOB, leg swelling, focal neurologic deficit, GI symptoms including abdominal pain or N/V/D/C, fall or trauma, headache, fever, chills, abnormal weight changes (although reports poor appetite related to METHAMPHETAMINE use), also denies urinary symptoms. He has a long standing history of substance use disorder as stated above. He had multiple admissions. As far as 2018 with complaints of chest pain, supraventricular tachybradycardia r arrhythmia. In 2018, he was hospitalized for tachyarrhythmia requiring cardioversion, again admitted the same year with similar symptoms, however a made at that time. Record review showed troponin as high as 0.38. EKG during this admission showed SVT with HR 180 during 1 visit, atrial fibrillation on another visit, and sinus bradycardia of 54 on another visit. He was admitted 05/25/2023 for left hernia repair with. EKG then showed sinus rhythm, with right bundle branch block. In 06/29/2024, he presented to the ED with chest pain on palpitation, found to have supraventricular tachycardia likely in settings of METHAMPHETAMINE. ED COURSE: * Afebrile, BP 105/69, HR 130, RR 18, satting 99% on room air. * CHEM panel significant for BUN 28, MAKENNA with CR 1.5 (baseline 1.1). Troponin 0.035 > 0.839. BMP pending. CBC showed WBC 16.7 > 13.2, Hgb and PLT WNL. Normal coag studies. UA was turbid with 2+ protein, 1+ blood, 9 RBC. Talk screen positive for FENTANYL and METHAMPHETAMINE. * CXR showed no active pulmonary pathology. * EKG showed A-fib with RVR, HR 142, and RBBB. * Echocardiogram showed normal LV size and function, EF 50?55, indeterminate diastolic dysfunction. Normal RV size and function, mild aortic valvular sclerosis without stenosis, mild decreased mobility of RCC cusp with calcification, mild MAC/MR, trace TR, no pericardial effusion. PMHx: As above PSHx: Right and left inguinal hernia repair, tonsillectomy as a child MEDS: IBUPROFEN PRN, topical KETOCONAZOLE, LISINOPRIL ? HYDROCHLOROTHIAZIDE. ALLERGIES: No known allergies. FHx: Father at 78, unknown cause. Mother at 73, unknown cause. SHx: Has 3 children, from his and children, does not know their history. Lives with girlfriend in a mobile home. 1. Longstanding history history of substance abuse, greater than 40 years. 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 Patient examined in the ED at bedside. He denied active chest pain, palpitation or shortness of breath. surveillance system monitor showing normal heart rate, sinus rhythm, likely improved after fluids. At this time. Troponinemia likely related to tachyarrhythmia in setting of METHAMPHETAMINE use. He has a history of multiple admissions for similar symptoms with negative workup. Anticipate the same course this time around. Will continue with oral DILTIAZEM for heart rate control, replete potassium and magnesium. Trending troponin. Maintain potassium greater than 4, magnesium greater than 2. Will consider possible cardiac catheterization if systems persist. cc:: cc: Yunior oMdi MD Exam Vital Signs Temp Pulse Resp BP Pulse Ox O2 Del Method 97.5 F 65 18 135/81 H 97 Room Air 09/13/24 20:00 09/13/24 21:17 09/13/24 20:48 09/13/24 21:17 09/13/24 20:00 09/13/24 20:00 Narrative Exam GENERAL * Disheveled adult male, no apparent distress, on room air. HEENT * NCAT.?JACOB. Oral mucosa is moist. Patent Nares NECK * Supple, nontender, no thyromegaly, no meningismus, no JVD, no step offs CHEST * RRR, no m/g/r * CTAB, no w/r/r. Symmetrical chest rise. No intercostal subcostal retraction * Atraumatic, nontender, no crepitus, symmetrical expansion. ABDOMEN * Soft, flat, nontender. No guarding/rebound tenderness/masses. * Bowel sounds presents EXTREMITIES * No edema/cyanosis.? SKIN * Warm and dry, no jaundice/rashes. * Bilateral temporal wasting noted. NEUROMUSCULAR * No lumbar or midline, no CVA, no paraspinal muscle spasm or tenderness. * Moves all 4 extremities well, with full ROM and good CSM. * MORE x4, CN II-XII grossly intact. * No focal neurologic deficits. PSYCHIATRY * Normal mood and affect, cooperative, no SI or HI or hallucinations. Results Labs 09/14/24 05:50 09/14/24 05:50 Labs: Short CBC 09/13/24 09/13/24 Range/Units 07:54 09:06 WBC 16.7 H 13.2 H (3.8-10.6) Thou/mm3 Hgb 14.7 14.3 (13.5-16.0) g/dL Hct 42.8 41.4 (41.0-53.0) % Plt Count 359 278 D (140-440) Thou/mm3 BMP 09/13/24 09/13/24 07:54 09:06 Sodium 140 142 Potassium 3.8 3.8 Chloride 109 H 108 H Carbon Dioxide 22.8 24.2 BUN 27 H 28 H Creatinine 1.5 H 1.3 Glucose 124 H 114 H Calcium 8.8 8.6 Cardiac Enzymes 09/13/24 09/13/24 09/13/24 Range/Units 07:54 09:06 12:17 Troponin I 0.035 0.126 H* 0.573 H* D (0.0-0.045) ng/mL 09/13/24 09/13/24 Range/Units 16:05 20:10 Troponin I 0.736 H* 0.839 H* (0.0-0.045) ng/mL Liver Function 09/13/24 09/13/24 Range/Units 07:54 09:06 Total Bilirubin 0.3 0.3 (0.3-1.2) mg/dL AST 20 18 (0-34) U/L ALT 11 11 (10-49) U/L Alkaline Phosphatase 118 H 112 (46-116) U/L Albumin 4.0 3.9 (3.4-4.8) gm/dL Urine 09/13/24 Range/Units 08:30 Urine Color Yellow (Lt Yel-Yel) Urine Clarity Turbid A (Clear/Hazy) Urine pH 6.0 (5.0-7.0) Ur Specific [place] 1.028 (1.001-1.035) Urine Protein 2+ A (Neg - Trace) Urine Glucose (UA) Trace (Negative) Quality Measures Quality Measures none Advance care planning discussed with:: patient Medications Home Medications and Allergies Allergies Allergy/AdvReac Type Severity Reaction Status Date / Time No Known Allergies Allergy Verified 09/13/24 07:41 Visit Medications Acetaminophen (Acetaminophen 325 Mg Tablet) 650 mg PO Q6H PRN PRN Reason: pain and Fever >100.4 Stop: 10/13/24 11:51 Diltiazem HCl (Diltiazem 30 Mg Tablet) 30 mg PO Q8H [facility] Stop: 10/13/24 14:09 Last Admin: 09/13/24 21:17 Dose: 30 mg Enoxaparin Sodium (Enoxaparin Sod Inj 40 Mg/0.4 Ml Syringe) 40 mg SC QDAY [facility] Stop: 09/27/24 11:54 Last Admin: 09/13/24 12:18 Dose: 40 mg Nicotine (Nicotine Patch 14 Mg/24 Hr Patch.Td24) 14 mg TOP QDAY [facility] Stop: 10/13/24 14:14 Last Admin: 09/13/24 14:49 Dose: 14 mg Ondansetron HCl (Ondansetron Inj 2 Mg/Ml Inj 2 Ml) 4 mg IV Q6H PRN; Protocol PRN Reason: NAUSEA OR VOMITING Stop: 10/13/24 11:51 Discontinued Medications Aspirin (Aspirin 81 Mg Chew) 324 mg PO X1 ONE Stop: 09/13/24 08:52 Last Admin: 09/13/24 09:15 Dose: 324 mg Diltiazem HCl (Diltiazem In D5w 125 Mg) 125 mg in 125 mls @ 5 mls/hr IV .Q24H [facility]; Protocol Stop: 10/13/24 13:08 Magnesium Sulfate (Magnesium Sulfate Ivpb) 2 gm in 50 mls @ 25 mls/hr IV X1 ONE Stop: 09/13/24 16:06 Last Admin: 09/13/24 14:23 Dose: 25 mls/hr Lorazepam (Lorazepam 2 Mg/Ml Vial) 2 mg IVP X1 ONE Stop: 09/13/24 08:47 Last Admin: 09/13/24 09:26 Dose: Not Given Metoprolol Tartrate (Metoprolol Tartrate Inj 1 Mg/Ml Amp 5 Ml) 5 mg IV Q5M PRN PRN Reason: TACHYCARDIA Ondansetron HCl (Ondansetron Inj 2 Mg/Ml Inj 2 Ml) 4 mg IV Q1HR PRN PRN Reason: PERSISTENT NAUSEA OR VOMITING Potassium Chloride (Potassium Chloride 20 Meq Tabcr) 40 meq PO X1 ONE Stop: 09/13/24 14:08 Last Admin: 09/13/24 14:22 Dose: 40 meq Assessment & Plan Plan 64-year-old male PMHx of COPD, HTN, paroxysmal A-fib, tachybradycardia arrhythmia, CAD, left bundle detachment, polysubstance use disorder, presented to ED with chest pain and palpitation, found to have A-fib with RVR on EKG. Has mild troponin elevation, and slightly uptrending, likely demand ischemia. NSTEMI type II A-fib with RVR Paroxysmal A-fib HTN Polysubstance use disorder Presenting with acute chest pain, palpitation with reported diaphoresis. On presentation EKG showed A-fib with RVR, HR 130s. Troponin 0.035 > 0.839, likely demand ischemia in settings of tachyarrhythmia 2/2 METH use (last used the night before admission). Echocardiogram showed normal LV size and function, EF 50?55, indeterminate diastolic dysfunction. Normal RV size and function, mild aortic valvular sclerosis without stenosis, mild decreased mobility of RCC cusp with calcification, mild MAC/MR, trace TR, no pericardial effusion. He has long-standing history of substance use disorder with multiple hospital admissions since 2018 for cardiac complaints, including chest pain and arrhythmias. He was hospitalized in 2018 for supraventricular tachycardia (SVT) requiring cardioversion, and again later that year for similar symptoms. Records indicate troponin as high as 0.38 during that time. EKGs have shown SVT with HR up to 180, atrial fibrillation, and sinus bradycardia (HR 54). On 05/25/2023, he was admitted for a left hernia repair; EKG showed sinus rhythm with right bundle branch block (RBBB). On 06/29/2024, he presented to the ED with chest pain and was found to have SVT, likely associated with methamphetamine use. Currently, asymptomatic, no chest pain or palpitation. surveillance system monitor showing rate and rhythm control. The patient was counseled on the risks of ongoing polysubstance abuse and advised that cessation is critical to prevent further episodes of arrhythmia and future hospital admissions. ? Continue DILTIAZEM 30 mg q.8h. ? Continue LOVENOX 40 mg daily ? NITROGLYCERIN or TYLENOL for pain PRN ? Fluid hydration ? Maintain K > 4, Mag > 2 (repleated) ? Will consider cardiac cath if symptoms persist MAKENNA Creatinine 1.5 > 1.3, baseline 1.1. Likely in setting of dehydration. ? Managed per primary team ? Recommended fluids ? Daily labs Leukocytosis Likely reactive, afebrile, no active lung disease on CXR. WBC 16.7 > 13.2. ? Continue monitoring COPD Active smoker As per chart review, likely related to smoking. No signs of COPD exacerbation at this time. ? Continue monitoring ? NICOTINE patches Retinal detachment As noted per chart review. Patient admits to visual impairment in left eye. ? Recommended ophthalmology referral. Thank you for the opportunity to participate in the patient's care. Case was discussed with attending, Dr. Welch. Hailey Mratinez, DO PGYI Attending Provider Attestation/Addendum I have personally seen and examined the patient separately on the above date of service and discussed the plan of care with the resident. I reviewed the resident Dr. Hailey Martinez excellent consultation progress note and agree with the resident findings and plan in the note above and have also edited the documentation to reflect my findings and plan. A 64-year-old male with a past medical history of paroxysmal atrial fibrillation not on anticoagulation, history of polysubstance abuse with methamphetamine, fentanyl, alcohol, marijuana, chronic tobacco use with more than 56-mgsk-nudt smoking history, opioid abuse, essential hypertension, COPD, poor vision in the left eye secondary to possible retinal detachment presented to the hospital for further evaluation of palpitations and some chest pain and chest pressure. Patient has a long history of substance abuse for more than 30 years and had a history of previous SVTs requiring cardioversion. Also had one of the EKG showing possible atrial fibrillation but he was never diagnosed with the same. Patient came to the emergency department has been started having palpitations and rapid heartbeat which is associated with some chest pain and chest pressure and did not relieve overnight and hence came to the emergency department for further evaluation. He is chest pain was only associated with the palpitations and the patient atypical but he has have significant risk factors for coronary artery disease. EKG reviewed in the emergency department did show atrial fibrillation with RVR. Troponins were mildly elevated at 0.035 and peaked at 0.839. EKG without any acute ST segment changes. Patient did convert to normal sinus rhythm now the heart rate is 60 to 65 bpm and does not have any chest pain or chest pressure. Potassium was 3.8 and magnesium was 1.8 on admission. Labs definitely indicate dehydration with elevated WBC, hemoglobin as well as creatinine of 1.5 and elevated BUN. Chest x-ray without any acute pathology except for COPD changes. Assessment and plan: 1. Atrial fibrillation with RVR 2. Elevated troponins-most secondary to NSTEMI type II in the setting of A-fib with RVR 3. Atypical chest pain 4. Acute kidney injury 5. Polysubstance abuse disorder with methamphetamine, fentanyl, alcohol, marijuana, chronic tobacco use with more than 40-hcnk-nctp smoking history, opioid abuse, 6. Current smoker with more than 96-[id number]-qvfq smoking history 7. History of SVT 8. Uncontrolled hypertension 9. COPD 10. Poor vision due to possible left retinal detachment Patient presented with palpitations and some chest pain chest pressure. Palpitations secondary to the paroxysmal atrial fibrillation with RVR in the setting of dehydration as well as electrolyte abnormalities. Patient was given IV fluids and patient did converted to normal sinus rhythm. Patient heart rate is well-controlled but blood pressure is elevated on admission. Recommend to start patient on Cardizem p.o. 30 mg every 8 hours for now as beta-blockers cannot be given because of COPD and chronic history of smoking. He does have some wheezing on examination. Continue telemetry monitoring and replace potassium and magnesium and close will keep it greater than 4 and 2 respectively. Recommend to start on anticoagulation with Eliquis 5 mg twice daily as chest Vascor is elevated and at least 2 without echo findings. Regarding his chest pain or chest pressure a is mostly straight with the palpitation and is atypical and has no chest pressure since patient converted to normal sinus rhythm. Troponins were elevated at 0.035 and 0.128 and peaked at 0.836 and later down trended. EKG without any acute ST-T changes after conversion to normal sinus rhythm. Troponin elevation mostly secondary to NSTEMI type II in the setting of A-fib with RVR. Echocardiac to rule out regional wall motion abnormalities and also check LV function RV function as well as diastolic function. Aspirin statin for now. Patient does have significant risk factors for CAD as mentioned above and will need further ischemic workup and patient recommended to follow-up in office to continue the workup. Patient's blood pressure is elevated on admission and recommend to continue Cardizem 30 mg every 8 hours for now and then can change it to Cardizem CD 120 mg once daily once the heart rate is well-controlled and can add ARB if needed for further blood pressure control. Management of rest of the medical conditions as per primary team and other consultants. Thank you for the consult and allowing me to participate in the care of the patient. Cardiology will continue to follow. Zacarias Welch M.D. Interventional Cardiology
[2024-09-14] VITALS (7 sets, daily range): BP systolic 152–164; BP diastolic 89–101; PULSE 57–75; RESP 12–95; TEMP 36.1–36.8; O2SAT 94–99; BMI 23.1
[2024-09-14] MEDS: DILTIAZEM 30 MG TABLET PO (05:50)
[2024-09-14 06:18] LABS: Basophils # (Auto) 0.1 Thou/mm3 (0.0-0.2); Basophils % (Auto) 1 % (0-2.5); Eosinophils # (Auto) 0.2 Thou/mm3 (0.0-0.5); Eosinophils % (Auto) 2 % (0-10); Hematocrit 45.1 % (41.0-53.0); Hemoglobin 14.9 g/dL (13.5-16.0); Immature Granulocytes % (Auto) 0 % (0-0); Immature Granulocytes Auto 0.02 Thou/mm3 (0.00-0.00); Lymphocytes % (Auto) 21 % (10-50); Mean Corpuscular Hemoglobin 28.1 pg (25.0-35.0); Mean Corpuscular Volume 85 fL (80-100); Monocytes # (Auto) 0.8 Thou/mm3 (0.0-0.8); Monocytes % (Auto) 9 % (0-12); Neutrophils # (Auto) 6.6 Thou/mm3 (1.8-7.7); Neutrophils % (Auto) 68 % (37-80); Nucleated Red Blood Cell % 0 /100 WBC (0); Platelet Count 267 Thou/mm3 (140-440); RDW Standard Deviation 48.2 fL (35.1-43.9); White Blood Count 9.7 Thou/mm3 (3.8-10.6)
[2024-09-14 07:28] LABS: Glucose Estimated Average 123 mg/dL (80-131); Hemoglobin A1C 5.9 % Hgb (4.8-6.0)
[2024-09-14 07:38] LABS: Alanine Aminotransferase 9 U/L (10-49); Albumin, Serum 3.9 gm/dL (3.4-4.8); Albumin/Globulin Ratio 1.8 (1.2-2.2); Alkaline Phosphatase 108 U/L (46-116); Anion Gap 6 (7-16); Aspartate Amino Transferase 17 U/L (0-34); BUN/Creatinine Ratio 23 Ratio (12-20); Bilirubin,Total 0.4 mg/dL (0.3-1.2); Blood Urea Nitrogen 25 mg/dL (9-23); Calcium 8.5 mg/dL (8.3-10.6); Calcium (Corrected) 8.6 mg/dL (8.5-10.1); Carbon Dioxide 26.3 mMol/L (20.0-31.0); Cardiac Risk Estimate 3.9 RATIO (4.0-6.7); Chloride 108 mMol/L (98-107); Cholesterol 194 mg/dL (132-200); Creatinine (Component) 1.1 mg/dL (0.6-1.3); Estimated Creatinine Clearance 71.1 mL/min (>60); Globulin 2.2 gm/dL (2.3-3.5); Glucose 102 mg/dL (74-106); HDL Cholesterol 50 mg/dL (40-60); LDL Cholesterol,Calculated 128 mg/dL (0-130); Magnesium 1.9 mg/dL (1.6-2.6); Osmolality,Calculated 283 (275-295); Potassium 4.1 mMol/L (3.4-5.1); Sodium 140 mMol/L (136-145); Thyroid Stimulating Hormone 2.03 uIU/mL (0.55-4.78); Total Protein 6.1 gm/dL (5.7-8.2); Triglycerides 81 mg/dL (30-150); eGFR > 60 See Note
[2024-09-14 07:48] LABS: Troponin I 0.536 ng/mL (0.0-0.045)
[2024-09-14] MEDS: ENOXAPARIN SOD INJ 40 MG/0.4 ML SYRINGE SC (08:22)
[2024-09-14] MEDS: NICOTINE PATCH 14 MG/24 HR PATCH.TD24 TOP (08:22)
[2024-09-14] MEDS: Magnesium Sulfate 2 GM Ivpb 2 GM/50 ML BAG IV (08:37)
--- NOTE | 2024-09-14 09:15 | PC.SS ---
SS follow up note; Cardiology Rec's pending Possible discharge today.
--- NOTE | 2024-09-14 10:40 | ESDS_ITS ---
<Statement entered by Marianne Rios MD - 09/14/24 15:56> I discussed with and supervised the project management intern physician who took care of this patient. I personally saw and examined the patient and discussed the assessment and plan with the entire medicine team, including my attending Dr. Martins, I agree with most of the assessment and plan as documented below Marianne Rios M.D. PGY-2 Planned Discharge Date 09/14/24 DS: Providers Provider Date of admission: 09/13/24 11:52 Primary care physician: Physician No Primary/Family Admitting Provider: Yunior Modi MD Attending Provider on Admission: Yunior Modi MD Consults: 09/13/24 11:54 Consult to Cardiology Routine Comment: Consulting Provider: Zacarias Welch Attending Provider on DC: Warren Collins MD Discharging Provider: Warren Collins MD DS: Diagnosis Problem List Completed Was Problem List Reviewed/Reconciled?: Yes Hospital Course Hospital Course Hospital course: 64-year-old male with past medical history of COPD, hypertension, polysubstance use, and active smoker was admitted to the hospital on 09/13/2024 for new onset A- fib with RVR and NSTEMI. Patient came into the ED with complaints of chest pain and palpitations. In the ED patient was found to have A-fib with RVR and EKG with heart rate in the 140s before he converted back to sinus rhythm.Initially patient came in normotensive and tachycardic. Initial labs were relevant for leukocytosis (13.2), MAKENNA (creatinine 1.5 and then 1.3), troponinemia (0.126 and up trended to 0.736), and U-Tox positive for fentanyl and meth. Initial imaging included chest x-ray which did not show any pneumonia or pulmonary edema and EKG that showed A-fib with RVR. Cardiology was consulted and started patient on diltiazem 120 mg daily. Patient also had an echo done that showed EF of 50 to 55%. Patient's troponins down trended this was midline secondary to demand ischemia. Throughout the hospital stay patient remained in sinus rhythm and his MAKENNA resolved. At the time of discharge patient was stable enough to be discharged home. Discharge plan: Please follow-up with your primary care physician within 1 week upon discharge Please follow-up with project internship Dr. Welch within 1 week upon discharge You have been started on diltiazem CD 120 mg daily, Eliquis 5 mg twice daily, and atorvastatin 40 mg at bedtime. Please try and maintain a low-sodium diet, weight yourself daily, and maintain a fluid intake of around 2 L/day. Highly advised to stay away from any more illicit drugs as this could be contributing to your heart failure and arrhythmias. Please come back to the ER if symptoms persist or worsen. Problem list: #Paroxysmal atrial fibrillation, new onset #NSTEMI #MAKENNA, resolved #Leukocytosis, resolved #Polysubstance use Case disclosed with Attending Dr. Martins and My senior Dr. Rios PGY2. Warren Collins PGY1 Status at Discharge Overall status at discharge: patient is progressing back to baseline Time Spent with Patient Time attestation: Total time spent providing and/or coordinating discharge services:>35 min Time spent: Greater than 30 minutes Exam Vital Signs Temp Pulse Resp BP Pulse Ox O2 Del Method 97.6 F 62 20 164/101 H 94 L Room Air 09/14/24 08:00 09/14/24 08:00 09/14/24 08:00 09/14/24 08:00 09/14/24 08:00 09/14/24 08:00 Narrative Exam General: A/O x3, no acute distress, disheveled Eyes: PERRL, EOMI. Anicteric, vision grossly intact. Ears: No ear pain, no ear discharge, Hearing grossly intact. Nose: No nasal discharge. Mouth/Throat: Moist mucous membranes, no redness, no lesions. Neck: Neck supple, non-tender, no cervical lymphadenopathy. Lungs: Clear DAGOBERTO to auscultation and percussion, No accessory muscle use. Cardio: Normal S1/S2, regular rhythm, no murmurs, no JVD Abdomen: Soft, non-tender, no palpable masses, peristalsis present, no guarding or rebound. Extremities: Symmetrical, no significant deformities, no peripheral edema , non-tender, peripheral pulses presents. Skin: No rashes, no lesions, warm to touch. Neuro: No focal neurological deficits. motor and sensory intact Discharge Plan Plan Patient Disposition: HOME (Self Care) Patient condition on transfer: Stable Care Plan Goals: Please follow-up with your primary care physician within 1 week upon discharge Please follow-up with project internship Dr. Welch within 1 week upon discharge You have been started on diltiazem CD 120 mg daily, Eliquis 5 mg twice daily, and atorvastatin 40 mg at bedtime. Please try and maintain a low-sodium diet, weight yourself daily, and maintain a fluid intake of around 2 L/day. Highly advised to stay away from any more illicit drugs as this could be contributing to your heart failure and arrhythmias. Please come back to the ER if symptoms persist or worsen. Prescriptions/Referrals Prescriptions/Med Rec: New diltiazem HCl 120 mg capsule,extended release 24hr 120 mg PO QDAY Qty: 30 0RF losartan 25 mg tablet 25 mg PO QDAY Qty: 30 0RF atorvastatin 40 mg tablet 40 mg PO QPM Qty: 30 0RF Eliquis 5 mg tablet 5 mg PO BID Qty: 60 0RF Continued ketoconazole 2 % shampoo 1 applic topical Q14D Qty: 120 0RF Discontinued lisinopril-hydrochlorothiazide 20-12.5 mg tablet 1 tab PO DAILY docusate sodium [Colace] 100 mg capsule 100 mg PO BID Qty: 40 0RF ibuprofen 600 mg tablet 600 mg PO Q8H PRN (Reason: pain (scale score 4-6)) Qty: 15 0RF hydrocodone-acetaminophen 7.5-325 mg tablet 1 tab PO Q6H MDD 4 PRN (Reason: pain (scale score 7-10)) Qty: 20 0RF Referrals: Zacarias Welch MD [Physician] - No Primary/Family,Physician [Primary Care Provider] - Patient/Caregiver Discharge Instructions Other Discharge Activity Instructions:: Please follow-up with your primary care physician within 1 week upon discharge Please follow-up with project internship Dr. Welch within 1 week upon discharge You have been started on diltiazem CD 120 mg daily, Eliquis 5 mg twice daily, and atorvastatin 40 mg at bedtime. Please try and maintain a low-sodium diet, weight yourself daily, and maintain a fluid intake of around 2 L/day. Highly advised to stay away from any more illicit drugs as this could be contributing to your heart failure and arrhythmias. Please come back to the ER if symptoms persist or worsen. Education Materials: CHARI/Afib, Discharge Instructions for ..., Your Heart Risk Action Plan, Eating Heart-Healthy Foods Print Language: Nigerien Stand Alone Forms: Lori Award Info., Patient Portal Info Letter Discharge Order Discharge Orders: Discharge (Routine); Ordered 09/14/24 Ordered By: Warren Collins Quality Discharge Quality Measures VTE prophylaxis Attestestation Attestation I have discussed and was present for the essential components of the discharge history, physical examination, diagnosis, and discharge treatment plan with the resident. I agree with the patient's discharge care as documented by the resident and amended herein by me. Tristan Martins, . The patient understood all discharge instructions, all questions were answered satisfactorily. The patient was instructed to return to the Emergency Department is symptoms worsened or persisted. Patient was stable, afebrile, tolerating p.o. intake and ambulatory at time of discharge home. Patient will be discharged on diltiazem and Eliquis, see med rec above for additional details. Although this document has been carefully reviewed, there may still be some phonetic and other typographical errors. These errors are purely grammatical due to imperfections in the software program and should not be construed in any way to compromise the substance of the patient's medical care during this visit.
== END 2024-09-14 13:10 | disposition home or self-care (01) | DRG 281 ==
LOC: SERX 10:42 → SERHOLD 13:02 → S2NX 15:40
PROVIDERS: Nurse Practitioner Primary Care; Student in an Organized Health Care Education/Training Program; Admitting Provider Student in an Organized Health Care Education/Training Program; Emergency Provider Emergency Medicine; Visit Provider Student in an Organized Health Care Education/Training Program
DX: I48.0 Paroxysmal atrial fibrillation (principal); H33.22 Serous retinal detachment, left eye; I21.A1 Myocardial infarction type 2; N17.9 Acute kidney failure, unspecified; I10 Essential (primary) hypertension; F15.10 Other stimulant abuse, uncomplicated; H54.40 Blindness, one eye, unspecified eye; J44.9 Chronic obstructive pulmonary disease, unspecified; F11.10 Opioid abuse, uncomplicated; F17.210 Nicotine dependence, cigarettes, uncomplicated; I45.10 Unspecified right bundle-branch block; E86.0 Dehydration; D72.829 Elevated white blood cell count, unspecified; I25.10 Atherosclerotic heart disease of native coronary artery without angina pectoris; I47.10 Supraventricular tachycardia, unspecified; I49.5 Sick sinus syndrome; Z63.4 Disappearance and death of family member; Z79.899 Other long term (current) drug therapy
CPT/HCPCS: 36415; 71045; 80053; 80061; 80307; 81001; 83036; 83690; 83735; 83880; 84443; 84484; 85025; 85610; 85730; 93005; 93306; 96372; 99285; J1650; J3475; A9270

== ENCOUNTER 2025-01-09 11:17 | Emergency (ER) | payer MEDICARE, MEDICAID, SELFPAY ==
[2025-01-09] VITALS (9 sets, daily range): BP systolic 67–150; BP diastolic 44–92; PULSE 61–169; RESP 17–24; TEMP 36.4–36.6; O2SAT 95–100; BMI 24.3
--- NOTE | 2025-01-09 11:21 | EKG_ITS ---
[facility] Test Date: 2025-01-09 Pat Name: ALMA DELIA MONDRAGON Department: Room: - Gender: Male [employer]: : 1960 Requested By: ED Temporary Provider Order Number: [id number] Reading MD: ED Temporary Provider Measurements Intervals [place] Rate: 59 P: 5 OR: 170 QRS: 4 QRSD: 113 T: 6 QT: 424 QTc: 423 Interpretive Statements SINUS BRADYCARDIA INDETERMINATE AXIS RIGHT BUNDLE BRANCH BLOCK [120+ ms QRS DURATION, UPRIGHT V1, 40+ ms S IN I/aVL/V4/V5/V6] Compared to ECG 09/13/2024 08:00:00 Atrial fibrillation no longer present ST (T wave) deviation no longer present /store/S0/[id number]
--- NOTE | 2025-01-09 11:54 | XR_ITS ---
Examination: AP chest single view Technique: AP portable semiupright chest single view Date and time: January 09, 2025 1201 hrs., Comparison September 13, 2024. Indications: Chest pain today Findings: No significant cardiac enlargement Prominent central pulmonary arteries. No lobar pneumonia or pulmonary edema. Significant osteopenia. Impression: Suspicious for pulmonary artery hypertension. No pneumonia or pulmonary edema
[2025-01-09] MEDS: SODIUM CHLORIDE 0.9% 1000 ML 1,000 ML 999 ML IV ×2 (12:00→12:41)
[2025-01-09 12:20] LABS: INR 1.1 (0.9-1.3); Partial Thromboplastin Time 30.8 Seconds (22.0-36.0); Prothrombin Time 11.5 Seconds (9.0-12.2)
--- NOTE | 2025-01-09 12:35 | EDNOTE_ITS ---
ED Chest Pain RME/HPI General Chief Complaint: Chest Pain Stated Complaint: CHEST PAIN SINCE 09, DIZZY TROUBLE SEEING Time Seen by Provider: 01/09/25 11:53 Arrival date/time: 01/09/25 11:17 RME / HPI RME / HPI narrative: 64 year old male with history of atrial fibrillation, COPD, hypertension, polysubstance use, active smoker presents to the ED with complaint of ?I don?t feel good? this morning. Reports experiencing a sensation of his heart feeling funny, accompanied by chest pain and dizziness, especially with standing. Chest pain described as a dull ache in sensation and rating 5/10. Additionally, he mentions last night he experienced an episode where his heart felt ?weird that resolved spontaneously. This morning, after riding his bike, the symptoms were aggravated, prompting ED visit. Denies any recent illness, fever, chills, night sweats, abdominal pain, nausea, vomiting, diarrhea, or urinary symptoms. Related Data Previous Rx's ?Medication ?Instructions ?Recorded ketoconazole 2 % shampoo 1 applic topical Q14D #120 m L 07/28/24 apixaban 5 mg tablet (Eliquis) 5 mg PO BID #60 tabs atorvastatin 40 mg tablet 40 mg PO QPM #30 tabs diltiazem HCl 120 mg 120 mg PO QDAY #30 caps 12/02 capsule,extended release 24 hr losartan 25 mg tablet 25 mg PO QDAY #30 tabs 09/14 Allergies Allergy/AdvReac Type Severity Reaction Status Date / Time No Known Allergies Allergy Verified 01/09/25 11:20 Review of Systems Review of Systems Systems Reviewed: All systems reviewed, normal except as documented Past Medical History Past Medical History CARDIAC: Positive Cardiac Disorders, Myocardial Infarction, Cardiac Arrhythmia, Atrial Fibrillation, Hypercholesterolemia and Hypertension RESPIRATORY: Positive Pneumonia GENITOURINARY: Positive Genitourinary Disorders and Inguinal Hernia ENT: Positive Cataracts, Blind and Retinal Detachment (l.eye) PSYCHO/SOCIAL: Positive Recreational Drug Use OTHER HISTORY: Positive Hospitalization Family History FAMILY HISTORY: Positive Family Cardiac Disorders, Family Gastrointestinal Problems and Family Cancer Surgical History SURGICAL: Positive Tonsillectomy Social History SMOKING STATUS: Current every day smoker SECOND HAND EXPOSURE: Yes SUBSTANCE USE: methamphetamine ED Exam Narrative Physical exam: GENERAL APPEARANCE: alert and oriented x 4, well-developed, well-nourished HEENT: Normocephalic, atraumatic; pupils equal, round, reactive to light; EOMI; mucous membranes pink, moist; oropharynx clear NECK: Supple LUNGS: CTABL; no wheezes, no rales, no rhonchi HEART: Tachycardia; normal S1, S2; no murmurs ABDOMEN: non distended; normal BS; soft, no tenderness, no guarding, no rebound; no masses, no organomegaly, no hernia BACK: no CVA tenderness EXTREMITIES: atraumatic; no edema NEUROLOGIC: awake; alert and oriented x4; cranial nerves II-XII grossly intact; no focal sensory or motor deficits PSYCHIATRIC: appropriate mood and affect SKIN: warm, mildly diaphoretic, normal color; no rashes Course Quality Measures none Orders Category Date Time Status Personnel Manager NOW Care 01/09/25 11:54 Completed EKG (ED ONLY) *Do not use* NOW Care 01/09/25 11:21 Completed EKG (ED ONLY) *Do not use* NOW Care 01/09/25 13:27 Completed EKG (ED Only) Stat Exams 01/09/25 11:21 Draft EKG (ED Only) Stat Exams 01/09/25 13:27 Draft XR chest 1V portable Stat Exams 01/09/25 11:54 Completed Alcohol, Blood Medical Stat Lab 01/09/25 11:57 Completed B-Type Natriuretic Peptide Stat Lab 01/09/25 11:57 Completed CBC Stat Lab 01/09/25 11:57 Completed Comprehensive Metabolic Panel Stat Lab 01/09/25 11:57 Completed Drug Screen,Urine Stat Lab 01/09/25 14:15 Completed Lipase Stat Lab 01/09/25 11:57 Completed Magnesium Stat Lab 01/09/25 11:57 Completed Partial Thromboplastin Time Stat Lab 01/09/25 11:57 Completed Prothrombin Time with INR Stat Lab 01/09/25 11:57 Completed Troponin I Stat Lab 01/09/25 11:57 Completed UA, C/S IF [Urinalysis, C/S if Indicated] Stat Lab 01/09/25 14:21 Completed Diltiazem Inj [Cardizem Inj] Med 01/09/25 13:12 Discontinued 15 mg IV X1 ONE Sodium Chloride 0.9% 1000 ml [Ns] 1,000 ml Med 01/09/25 12:28 Discontinued IV 999 mls/hr Sodium Chloride 0.9% 1000 ml [Ns] 1,000 ml Med 01/09/25 12:38 Discontinued IV 999 mls/hr Vital Signs Vital signs: Vital Signs Pulse Rate 169 H 01/09/25 11:31 Respiratory Rate 24 H 01/09/25 11:31 Blood Pressure 67/44 L 01/09/25 11:31 Pulse Oximetry (%) 99 01/09/25 11:31 Oxygen Delivery Method Room Air 01/09/25 11:31 Pulse ox is 99% on room air which is adequate. Chest Pain MDM Narrative MDM Narrative:: IAlisson am scribing for and in the presence of Dr. Ann. On reassessment the patient reports feeling improved. States he has been compliant with his medications since he was discharged on 09/14/2024. Discussed todays results and advised the patient follow up with slide fasteners inspector. Patient data External records reviewed:: [facility] previous records (I reviewed admission from 09/13/2024 through 09/14/2024 ) Clinical information provided by:: patient Social determinants that could affect healthcare access:: substance use Patient has the following chronic illnesses:: atrial fibrillation, COPD, hypertension, polysubstance use, active smoker How is presenting disease/condition affected by chronic disease/condition?: exacerbated by Evaluation data The following diagnostics were reviewed and interpreted by me:: lab results, radiology exam(s) and EKG tracing(s) (01/09/2025 @ 11:38 AM. Sinus tachycardia, rate 165, IVCD. EKG #2 @ 13:28h. Sinus bradycardia, rate 59, RBBB.) Lab and/or radiology exams considered but not ordered:: None Interpretation Summary: Ordering Physician: Felicia Ann MD Date of Service: 01/09/25 Procedure(s): XR chest 1V portable Accession Number(s): [id number] cc: Ankit Bhakta MD; Felicia Ann MD~ Examination: AP chest single view Technique: AP portable semiupright chest single view Date and time: January 09, 2025 1201 hrs., Comparison September 13, 2024. Indications: Chest pain today Findings: No significant cardiac enlargement Prominent central pulmonary arteries. No lobar pneumonia or pulmonary edema. Significant osteopenia. Impression: Suspicious for pulmonary artery hypertension. No pneumonia or pulmonary edema Dictated By: Ankit Bhakta MD Signed By: <Electronically signed by Ankit Bhakta MD in [place]> 01/09/25 1226 Medications / Prescriptions Medications or Prescriptions considered but not ordered:: None Medication administrations:: Medication Administration History Discontinued Medications Diltiazem HCl (Diltiazem Inj 5 Mg/Ml Vial 5 Ml) 15 mg IV X1 ONE Stop: 01/09/25 13:13 Last Admin: 01/09/25 13:18 Dose: 15 mg Documented By: TM Comments: RIGHT AC Sodium Chloride (Ns) 1,000 mls @ 999 mls/hr IV .Q1H1M ONE Stop: 01/09/25 13:28 Last Infusion: 01/09/25 12:42 Dose: Infused Documented By: Admin: 01/09/25 12:00 Dose: 999 mls/hr Documented By: TM Sodium Chloride (Ns) 1,000 mls @ 999 mls/hr IV .Q1H1M ONE Stop: 01/09/25 13:38 Last Infusion: 01/09/25 13:03 Dose: Infused Documented By: Admin: 01/09/25 12:41 Dose: 999 mls/hr Documented By: TM See above Consultations Consultation(s) initiated? (list below): No Diagnosis Most likely diagnosis given after review of the tests above:: Tachycardia greater then 160bpm Right bundle branch block Admission Indicated Admission indicated?: not indicated Admission Request Was there a request for admission?: No Disposition Plan Disposition Plan: Discharge Discharge Attestation Discharge Attestation: The patient and all family members were given an opportunity to ask questions and understood the discharge instructions. Discharge instructions specifically effects, indications for sooner follow up or return to the emergency department, and the expected course of current diagnosis. Patient condition: Stable Discharge Plan Plan Patient Disposition: HOME (Self Care) Prescriptions/Referrals Prescriptions/Med Rec: No Action ketoconazole 2 % shampoo 1 applic topical Q14D Qty: 120 0RF diltiazem HCl 120 mg capsule,extended release 24hr 120 mg PO QDAY Qty: 30 0RF losartan 25 mg tablet 25 mg PO QDAY Qty: 30 0RF atorvastatin 40 mg tablet 40 mg PO QPM Qty: 30 0RF Eliquis 5 mg tablet 5 mg PO BID Qty: 60 0RF Referrals: Anumandla,Zacarias Cabrera, MD [Physician] - Sampson Mark MD [Primary Care Provider] - In 1 week Problem List Clinical Impression: Tachycardia with greater than 160 beats per minute, Right bundle branch block Patient/Caregiver Discharge Instructions Education Materials: ED About Arrhythmias Additional Instructions: Follow up with slide fasteners inspector Dr. Welch as previously recommended. Call office for appointment. Print Language: Spanish Stand Alone Forms: Lori Award Info., Patient Portal Info Letter
[2025-01-09 12:48] LABS: Alanine Aminotransferase < 7 U/L (10-49); Albumin, Serum 4.5 gm/dL (3.4-4.8); Albumin/Globulin Ratio 1.7 (1.2-2.2); Alcohol, Blood Medical < 3.0 mg/dL (0-10.0); Alkaline Phosphatase 137 U/L (46-116); Anion Gap 10 (7-16); Aspartate Amino Transferase 18 U/L (0-34); BUN/Creatinine Ratio 14 Ratio (12-20); Bilirubin,Total 0.4 mg/dL (0.3-1.2); Blood Urea Nitrogen 21 mg/dL (9-23); Calcium 10.3 mg/dL (8.3-10.6); Calcium (Corrected) 10.3 mg/dL (8.5-10.1); Carbon Dioxide 25.8 mMol/L (20.0-31.0); Chloride 106 mMol/L (98-107); Creatinine (Component) 1.5 mg/dL (0.6-1.3); Estimated Creatinine Clearance 50.7 mL/min (>60); Globulin 2.6 gm/dL (2.3-3.5); Glucose 112 mg/dL (74-106); Lipase 23 U/L (12-53); Magnesium 2.0 mg/dL (1.6-2.6); Osmolality,Calculated 287 (275-295); Potassium 4.0 mMol/L (3.4-5.1); Sodium 142 mMol/L (136-145); Total Protein 7.1 gm/dL (5.7-8.2); Troponin I 0.033 ng/mL (0.0-0.045); eGFR 51 See Note
[2025-01-09 12:55] LABS: Basophils # (Auto) 0.1 Thou/mm3 (0.0-0.2); Basophils % (Auto) 1 % (0-2.5); Eosinophils # (Auto) 0.5 Thou/mm3 (0.0-0.5); Eosinophils % (Auto) 3 % (0-10); Hematocrit 46.1 % (41.0-53.0); Hemoglobin 15.0 g/dL (13.5-16.0); Immature Granulocytes Auto 0.06 Thou/mm3 (0.00-0.00); Lymphocytes # (Auto) 2.3 Thou/mm3 (1.0-4.8); Lymphocytes % (Auto) 16 % (10-50); Mean Corpuscular HGB Conc 32.5 g/dl (31.0-37.0); Mean Corpuscular Hemoglobin 28.9 pg (25.0-35.0); Mean Corpuscular Volume 89 fL (80-100); Monocytes # (Auto) 1.0 Thou/mm3 (0.0-0.8); Monocytes % (Auto) 7 % (0-12); Neutrophils # (Auto) 10.1 Thou/mm3 (1.8-7.7); Neutrophils % (Auto) 73 % (37-80); Nucleated Red Blood Cell # 0.00 Thou/mm3 (0.00-0.00); Nucleated Red Blood Cell % 0 /100 WBC (0); Platelet Count 476 Thou/mm3 (140-440); RDW Standard Deviation 45.1 fL (35.1-43.9); Red Blood Count 5.19 Miln/mm3 (4.50-5.90); White Blood Count 13.9 Thou/mm3 (3.8-10.6)
[2025-01-09 13:18] LABS: B-Type Natriuretic Peptide 183 pg/mL (0-100)
[2025-01-09] MEDS: DILTIAZEM INJ 5 MG/ML VIAL 5 ML 15 MG IV (13:18)
--- NOTE | 2025-01-09 13:27 | EKG_ITS ---
[facility] Test Date: 2025-01-09 Pat Name: ALMA DELIA MONDRAGON Department: Room: - Gender: Male Carry Out Clerk: : 1960 Requested By: Felicia Chairez Order Number: [id number] Reading MD: Felicia Chairez Measurements Intervals [place] Rate: 165 P: [place]: QRS: -29 QRSD: 137 T: 72 QT: 303 QTc: 502 Interpretive Statements UNCERTAIN REGULAR RHYTHM INDETERMINATE AXIS INTRAVENTRICULAR CONDUCTION DELAY [130+ ms QRS DURATION] CRITICAL TEST RESULT WARNING: DATA QUALITY MAY AFFECT INTERPRETATION Compared to ECG 09/13/2024 08:00:00 Intraventricular conduction delay now present Atrial fibrillation no longer present Right bundle-branch block no longer present ST (T wave) deviation no longer present /[id number].pdf
[2025-01-09 14:33] LABS: Collection Type, Urine Clean Catch; Squamous Epithelial Cell,Urine 0 /hpf (0-5)
[2025-01-09 15:02] LABS: Amphetamine/Methamp Scrn,U Positive (Negative); Barbiturate Screen,Urine Negative (Negative); Benzodiazepines Screen,Urine Negative (Negative); Benzoylecgonine Screen, Ur Negative (Negative); Fentanyl Screen,Urine Positive (Negative); Opiate Screen,Urine Negative (Negative); THC Screen,Urine Negative (Negative)
[2025-01-09 17:45] LABS: Bilirubin,Urine Negative (Negative); Blood,Urine Negative (Negative); Clarity,Urine Clear (Clear/Hazy); Color,Urine Lt-Yellow (Lt Yel-Yel); Culture Indicated,Urine Not Indicated; Glucose, Urine Negative (Negative); Hyaline Casts,Urine < 1 /hpf (0-1); Ketones,Urine Negative (Negative); Leukocyte Esterase,Urine Negative (Negative); Nitrite,Urine Negative (Negative); PH,Urine 6.5 (5.0-7.0); Protein,Urine Negative (Neg - Trace); RBC,Urine 2 /hpf (0-3); Specific Gravity,Urine 1.013 (1.001-1.035); Urobilinogen,Urine Negative mg/dL (0.0-1.0); WBC,Urine < 1 /hpf (0-5)
== END 2025-01-09 18:19 | disposition home or self-care (01) ==
PROVIDERS: Emergency Provider Emergency Medicine; PCP Family Medicine
DX: I45.10 Unspecified right bundle-branch block (principal); R07.9 Chest pain, unspecified; I10 Essential (primary) hypertension; F17.210 Nicotine dependence, cigarettes, uncomplicated; E78.00 Pure hypercholesterolemia, unspecified; I48.91 Unspecified atrial fibrillation
CPT/HCPCS: 36415; 71045; 80053; 80307; 80320; 81001; 83690; 83735; 83880; 84484; 85025; 85610; 85730; 93005; 96360; 99284; J3490; J7030; G0480